=== PATIENT | female | born 1995 | race American Indian/Alaskan Native ===

== ENCOUNTER 2017-02-16 08:56 | Emergency (ER) | payer MEDICAID ==
[2017-02-16 10:35] LABS: Basophils % (Auto) 0.3 % (0.0-1.8); Eosinophils % (Auto) 2.4 % (0.0-4.3); Hematocrit 40.9 % (30.3-42.9); Hemoglobin 13.7 gm/dl (10.1-14.3); Mean Corpuscular HGB Conc 34 % (30-34); Mean Corpuscular Hemoglobin 31 pg (28-32); Mean Corpuscular Volume 93 fl (79-97); Platelet Count 388 K/mm3 (140-440); Red Blood Count 4.42 M/mm3 (3.65-5.03); Red Cell Distribution Width 12.9 % (13.2-15.2); White Blood Count 10.1 K/mm3 (4.5-11.0)
[2017-02-16 10:56] LABS: Bilirubin,Urine NEG (Negative); Blood,Urine SM (Negative); Ketones,Urine NEG (Negative); Leukocyte Esterase,Urine SM (Negative); Mucus,Urine 3+ /HPF; Nitrite,Urine NEG (Negative)
[2017-02-16 11:02] LABS: Anion Gap 20 mmol/L; BUN/Creatinine Ratio 8.75; Blood Urea Nitrogen 7 mg/dL (7-17); Calcium 9.2 mg/dL (8.4-10.2); Carbon Dioxide 22 mmol/L (22-30); Chloride 104.3 mmol/L (98-107); Glucose 95 mg/dL (65-100); Sodium 142 mmol/L (137-145)
[2017-02-16] MEDS ORDERED: DUONEB *Not for PRN Use IH ONE (14:18)
[2017-02-16] MEDS ORDERED: DELTASONE PO ONE (14:18)
--- NOTE | 2017-02-16 15:48 | XRay Report ---
FINAL REPORT EXAM: XR CHEST ROUTINE 2V HISTORY: worsenign cough TECHNIQUE: 2 views of the chest PRIORS: None FINDINGS: Normal heart size. No pleural effusion or pneumothorax. Lungs are clear. No vascular congestion. IMPRESSION: 1. No acute finding.
--- NOTE | 2017-02-16 16:05 | Emergency Department Report ---
Entered by BABAK BARGER, acting as scribe for SAMANTHA DUMONT PA. - General Chief Complaint: Upper Respiratory Infection Stated Complaint: FEVER Time Seen by Provider: 02/16/17 14:10 Source: patient Mode of arrival: Ambulatory Limitations: No Limitations - History of Present Illness Initial Comments: 21 y/o female with PMHx asthma and eczema, presents to the ED c/o sore throat x 1 day. Associated symptoms include fever, chills, ear ache, cough, nausea, vomiting and left wrist pain but she denies headache, SOB and chest pain. Patient states she is on control shot (Depo) and not breast feeding. No alleviating or aggravating factors. Uses tobacco products. NKDA. LMP: 01/26/17. Complaint: sore throat Onset/Timin -: days(s) Consistency: constant Improves With: nothing Worsens With: nothing Associated Symptoms: fever, chills, cough, nausea, vomiting, other (ear ache, left wrist pain). denies: headache, chest pain, shortness of breath Treatments Prior to Arrival: none - Related Data Previous Rx's Medication Instructions Recorded Last Taken Type ALBUTEROL Inhaler [ProAir HFA 2 puff IH QID PRN #1 inhalation 02/16/17 Unknown Rx Inhaler] Azithromycin [Zithromax Z-GURJIT] 250 mg PO QDAY #6 tablet 02/16/17 Unknown Rx Ibuprofen [Motrin] 800 mg PO Q8HR PRN #15 tablet 02/16/17 Unknown Rx predniSONE [Deltasone] 40 mg PO QDAY #10 tab 02/16/17 Unknown Rx Allergies Allergy/AdvReac Type Severity Reaction Status Date / Time No Known Allergies Allergy Unverified 02/16/17 09:42 ED Review of Systems Comment: All other systems reviewed and negative Constitutional: chills, fever ENT: ear pain, throat pain Respiratory: cough. denies: shortness of breath Cardiovascular: denies: chest pain Gastrointestinal: nausea, vomiting Musculoskeletal: other (left wrist pain) Neurological: denies: headache ED Past Medical Hx - Past Medical History Hx Asthma: Yes Additional medical history: eczema - Social History Smoking Status: Current Every Day Smoker - Medications Home Medications: Home Medications Medication Instructions Recorded Confirmed Last Taken Type ALBUTEROL Inhaler [ProAir HFA 2 puff IH QID PRN #1 inhalation 02/16/17 Unknown Rx Inhaler] Azithromycin [Zithromax Z-GURJIT] 250 mg PO QDAY #6 tablet 02/16/17 Unknown Rx Ibuprofen [Motrin] 800 mg PO Q8HR PRN #15 tablet 02/16/17 Unknown Rx predniSONE [Deltasone] 40 mg PO QDAY #10 tab 02/16/17 Unknown Rx ED Physical Exam - General Limitations: No Limitations General appearance: alert, in no apparent distress - Head Head exam: Present: atraumatic, normocephalic, normal inspection - Eye Eye exam: Present: normal appearance, PERRL, EOMI. Absent: scleral icterus, conjunctival injection, nystagmus, periorbital swelling, periorbital tenderness Pupils: Present: normal accommodation - ENT ENT exam: Present: mucous membranes moist, TM's normal bilaterally, normal external ear exam - Neck Neck exam: Present: normal inspection, full ROM. Absent: tenderness, meningismus, lymphadenopathy, thyromegaly - Respiratory Respiratory exam: Present: normal lung sounds bilaterally. Absent: respiratory distress, wheezes, rales, rhonchi, stridor, chest wall tenderness, accessory muscle use, decreased breath sounds, prolonged expiratory - Cardiovascular Cardiovascular Exam: Present: regular rate, normal rhythm. Absent: bradycardia , tachycardia, irregular rhythm, normal heart sounds, systolic murmur, diastolic murmur, rubs, gallop - GI/Abdominal GI/Abdominal exam: Present: soft, normal bowel sounds. Absent: distended, tenderness, guarding, rebound, rigid, diminished bowel sounds - Extremities Exam Extremities exam: Present: normal inspection, full ROM, normal capillary refill. Absent: tenderness, pedal edema, joint swelling, calf tenderness - Back Exam Back exam: Present: normal inspection, full ROM. Absent: tenderness, CVA tenderness (R), CVA tenderness (L), muscle spasm, paraspinal tenderness, vertebral tenderness, rash noted - Neurological Exam Neurological exam: Present: alert, oriented X3 - Psychiatric Psychiatric exam: Present: normal affect, normal mood - Skin Skin exam: Present: warm, dry, intact, normal color. Absent: rash ED Course Vital Signs 02/16/17 02/16/17 02/16/17 09:32 14:55 14:56 Temperature 98.6 F Pulse Rate 89 Pulse Rate [ 89 89 Anterior Bilateral Throughout] Respiratory 16 Rate Respiratory 18 18 Rate [Anterior Bilateral Throughout] Blood Pressure 124/84 Blood Pressure 124/84 [Left] O2 Sat by Pulse 100 Oximetry ED Medical Decision Making - Lab Data Result diagrams: 02/16/17 10:21 02/16/17 10:21 - Medical Decision Making A/P: Upper respiratory tract infection 1-prednisone when necessary, albuterol inhaler, Motrin when necessary 2-azithromycin Z-Gurjit 3-follow up with primary care ED Disposition Clinical Impression: Upper respiratory infection Qualifiers: URI type: unspecified viral URI Qualified Code(s): J06.9 - Acute upper respiratory infection, unspecified Reactive airway disease Qualifiers: Asthma severity: mild intermittent Asthma complication type: uncomplicated Qualified Code(s): J45.20 - Mild intermittent asthma, uncomplicated Disposition: TO HOME OR SELFCARE Is pt being admited?: No Does the pt Need Aspirin: No Condition: Stable Instructions: Acute Bronchitis (ED), Acute Cough (ED), Reactive Airways Disease (ED) Prescriptions: ALBUTEROL Inhaler [ProAir HFA Inhaler] 2 puff IH QID PRN #1 inhalation PRN Reason: Shortness Of Breath Azithromycin [Zithromax Z-GURJIT] 250 mg PO QDAY #6 tablet Ibuprofen [Motrin] 800 mg PO Q8HR PRN #15 tablet PRN Reason: Pain predniSONE [Deltasone] 40 mg PO QDAY #10 tab Referrals: [facility] [Provider Group] - 3-5 Days Forms: Accompanied Note, Work/School Release Form(ED) This documentation as recorded by the CHARBEL velez ELIZABETH,accurately reflects the service I personally performed and the decisions made by JULIA green RICHARD J, PA.
[2017-02-16 17:09] VITALS: BP 120/82
== END 2017-02-16 17:08 | disposition home or self-care (01) ==
LOC: ED 08:56
DX: J06.9 Acute upper respiratory infection, unspecified (principal); J45.909 Unspecified asthma, uncomplicated; F17.210 Nicotine dependence, cigarettes, uncomplicated
CPT/HCPCS: 36415; 71020; 80048; 81001; 85025; 87116; 87430; 94640; 99284; J7512

== ENCOUNTER 2019-04-08 10:33 | Emergency (ER) | payer SELFPAY ==
[2019-04-08 10:57] VITALS: BP 119/73
--- NOTE | 2019-04-08 11:55 | Emergency Department Report ---
Chief Complaint: Recheck/Abnormal Lab/Rx Stated Complaint: STD Time Seen by Provider: 04/08/19 11:22 - HPI History of Present Illness: This is a 24-year-old female who presents to the emergency room for a STD check. Patient states she is ready to proceed further with her partner and requesting full testing. She denies urinary frequency, urgency, dysuria, vaginal discharge, hematuria, pelvic pain, and low back pain. - Exam Vital Signs: Vital Signs 04/08/19 10:54 Temperature 99.1 F Pulse Rate 117 H Respiratory 16 Rate Blood Pressure 119/73 [Right] MSE screening note: Focused history and physical exam performed. Due to findings the following was ordered: ED Medical Decision Making - Medical Decision Making This is a 24-year-old -[place] female who presents for STD screening. Patient was examined by me. Stable and in no acute distress. No labs ordered. Patient denies symptoms. Discharged home in stable condition. Discussed prevention options. F/U with PCP, gynecology, or Health Department. ED Disposition for MSE Clinical Impression: Feared complaint without diagnosis Disposition: DC-01 TO HOME OR SELFCARE Is pt being admited?: No Does the pt Need Aspirin: No Condition: Stable Instructions: Safe Sex (ED), Sexually Transmitted Diseases (ED) Additional Instructions: Follow up with the moth exterminator, primary care doctor, or urgent care for full STD screen and that is discussed. I have provided a list and referrals list below for you to follow-up with. Referrals: [facility] [Outside] - 3-5 Days [facility] [Outside] - 3-5 Days [facility] [Outside] - 3-5 Days [facility] [Other] - 3-5 Days Forms: Work/School Release Form(ED) Time of Disposition: 11:57
== END 2019-04-08 12:10 | disposition home or self-care (01) ==
LOC: ED 10:33
DX: Z71.1 Person with feared health complaint in whom no diagnosis is made (principal)
CPT/HCPCS: 99281

== ENCOUNTER 2020-06-01 20:25 | Inpatient (IN) | payer MEDICAID, OTHER, SELFPAY ==
[2020-06-01] MEDS ORDERED: ALBUTEROL 2.5 MG/3 ML NEBU IH ONE (22:54)
[2020-06-01] MEDS ORDERED: IPRATROPIUM/ALBUTEROL SULFATE 3 ML AMPUL.NEB IH ONE (22:54)
[2020-06-01] MEDS ORDERED: MAGNESIUM SULFATE 2 GM/50 ML BAG IV ONE (23:19)
[2020-06-01] MEDS ORDERED: AZITHROMYCIN 500 MG in SODIUM CHLORIDE 0.9% 250ML 250 ML IV ONE (23:21)
[2020-06-01] MEDS ORDERED: cefTRIAXone/NS 2 GM/100 ML 2 GM/100 ML BAG IV ONE (23:21)
[2020-06-01] MEDS ORDERED: SODIUM CHLORIDE 0.9% 1000 ML 1,000 ML IV ONE (23:21)
--- NOTE | 2020-06-01 23:21 | Emergency Department Report ---
ED Shortness of Breath HPI - General Chief Complaint: Adult Asthma Stated Complaint: [place] Time Seen by Provider: 06/01/20 23:15 Source: patient Mode of arrival: Ambulatory Limitations: No Limitations - History of Present Illness Initial Comments: Patient is a 25-year-old female that presents emergency room for shortness of breath and difficulty breathing. Patient has history of asthma. Patient states her symptoms started 2 days ago. Patient was brought in by EMS. Patient states that they gave her steroids and albuterol. Patient states she still having difficulty breathing and wheezing and coughing. Patient dates she had a fever yesterday. Patient states she cannot take a deep breath or catch her breath. Patient states that it hurts when she takes a deep breath. Patient states her symptoms are severe. Patient dates her shortness of breath better with rest and worse with exertion. Patient denies recent travel. Patient denies recent international travel. Patient denies exposure to the novel coronavirus. Patient denies sick contacts. Patient denies fever and chills. Patient denies cough. Patient denies diarrhea. Patient denies coming in contact with anybody with symptoms of the novel coronavirus. MD Complaint: shortness of breath, cough -: Sudden Severity: severe Consistency: constant Improves With: rest, bronchodilators Worsens With: exertion Known History Of: asthma Associated Symptoms: pain with inspiration, fever, cough, sputum production Treatments Prior to Arrival: bronchodilator, other - Related Data Home Oxygen Therapy: No Previous Rx's Medication Instructions Recorded Last Taken Type Albuterol Mdi (or & Nicu Only) 2 puff IH QID PRN #1 inhalation 02/16/17 Unknown Rx [ProAir HFA Inhaler] Azithromycin [Zithromax Z-NALINI] 250 mg PO QDAY #6 tablet 02/16/17 Unknown Rx Ibuprofen [Motrin] 800 mg PO Q8HR PRN #15 tablet 02/16/17 Unknown Rx predniSONE [Deltasone] 40 mg PO QDAY #10 tab 02/16/17 Unknown Rx Allergies Allergy/AdvReac Type Severity Reaction Status Date / Time No Known Allergies Allergy Verified 06/01/20 23:17 ED Review of Systems ROS: Stated complaint: [place] Other details as noted in HPI Constitutional: denies: chills, fever Eyes: denies: eye pain, eye discharge, vision change ENT: denies: ear pain, throat pain Respiratory: cough, shortness of breath, SOB with exertion, SOB at rest, wheezing Cardiovascular: denies: chest pain, palpitations Endocrine: no symptoms reported Gastrointestinal: denies: abdominal pain, nausea, diarrhea Genitourinary: denies: urgency, dysuria, discharge Musculoskeletal: denies: back pain, joint swelling, arthralgia Skin: denies: rash, lesions Neurological: denies: headache, weakness, paresthesias Psychiatric: denies: anxiety, depression Hematological/Lymphatic: denies: easy bleeding, easy bruising ED Past Medical Hx - Past Medical History Previous Medical History?: Yes Hx Asthma: Yes Additional medical history: eczema - Surgical History Past Surgical History?: No - Social History Smoking Status: Never Smoker Substance Use Type: None - Medications Home Medications: Home Medications Medication Instructions Recorded Confirmed Last Taken Type Albuterol Mdi (or & Nicu Only) 2 puff IH QID PRN #1 inhalation 02/16/17 Unknown Rx [ProAir HFA Inhaler] Azithromycin [Zithromax Z-NALINI] 250 mg PO QDAY #6 tablet 02/16/17 Unknown Rx Ibuprofen [Motrin] 800 mg PO Q8HR PRN #15 tablet 02/16/17 Unknown Rx predniSONE [Deltasone] 40 mg PO QDAY #10 tab 02/16/17 Unknown Rx ED Physical Exam - General Limitations: No Limitations General appearance: alert, in distress - Head Head exam: Present: atraumatic, normocephalic - Eye Eye exam: Present: normal appearance, PERRL Pupils: Present: normal accommodation - ENT ENT exam: Present: mucous membranes dry - Neck Neck exam: Present: normal inspection - Respiratory Respiratory exam: Present: respiratory distress, wheezes, chest wall tenderness, accessory muscle use, decreased breath sounds - Cardiovascular Cardiovascular Exam: Present: regular rate, normal rhythm. Absent: systolic murmur, diastolic murmur, rubs, gallop - GI/Abdominal GI/Abdominal exam: Present: soft, normal bowel sounds - Extremities Exam Extremities exam: Present: normal inspection - Back Exam Back exam: Present: normal inspection - Neurological Exam Neurological exam: Present: alert, oriented X3 - Psychiatric Psychiatric exam: Present: normal affect, normal mood - Skin Skin exam: Present: warm, dry, intact, normal color. Absent: rash ED Course Vital Signs 06/01/20 06/01/20 06/02/20 21:42 23:46 03:23 Temperature 99.1 F Pulse Rate 120 H 126 H 129 H Pulse Rate [ Bilateral] Respiratory 17 20 32 H Rate Respiratory Rate [Bilateral ] Blood Pressure 106/69 Blood Pressure 117/84 [Left] O2 Sat by Pulse 100 97 99 Oximetry 06/02/20 03:28 Temperature Pulse Rate Pulse Rate [ 133 H Bilateral] Respiratory Rate Respiratory 32 H Rate [Bilateral ] Blood Pressure Blood Pressure [Left] O2 Sat by Pulse Oximetry - Reevaluation(s) Reevaluation #1: Patient still wheezing. Patient's work to breathe has improved. Patient is still short of breath. 06/02/20 00:01 Reevaluation #2: I discussed all results with patient. I discussed plan of care with patient. Patient agrees with plan of care and admission. Patient to be admitted to the hospitalist service. 06/02/20 00:36 Reevaluation #3: Patient having increased work to breathe. Patient given a breathing treatment and still wheezing and having increased work of breathing. Patient placed on BiPAP. Patient's work to breathe improved. Patient complained of anxiety and patient will be given Ativan. Hospitalist made aware of updates. 06/02/20 03:18 - Consultations Consultation #1: Hospitalist consulted for admission. Hospitalist to admit patient. 06/02/20 00:36 ED Medical Decision Making - Lab Data Result diagrams: 06/01/20 23:25 06/02/20 01:46 - Radiology Data Radiology results: report reviewed, image reviewed interpreted by me: Chest x-ray: No pneumonia, no pneumothorax, no foreign body, no osseous findings, no acute findings - Medical Decision Making Patient is a 25-year-old female that presents emergency room with complaints of shortness of breath. Patient found to be in status asthmaticus. Patient received 125 mg of Solu-Medrol from EMS prior to arrival. Patient was also given albuterol 10 mg by EMS. On initial evaluation, patient was found to have severe wheezing and increased work to breathe and retractions. Patient was given another albuterol and Atrovent nebulizer and magnesium. Patient's work to breathe improved with therapy. Patient continued to wheeze after albuterol and mag. Patient chest x-ray was negative. Patient's labs were essentially unremarkable except for acidosis and lactic acidosis and elevated WBC. Patient admitted to the hospitalist service for further evaluation treatment. Patient had a Covid panel ordered just prior to admission. Consult for ID placed. After the patient was admitted, the patient became acutely short of breath and having difficulty breathing. Patient was given breathing treatment however her work of breathing improved and the patient was then placed on BiPAP. Patient's work of breathing and symptoms improved with BiPAP. - Differential Diagnosis Covid, pneumonia, status asthmaticus, shortness of breath, Critical Care Time: Yes Critical care time in (mins) excluding proc time.: 35 Critical care attestation.: If time is entered above; I have spent that time in minutes in the direct care of this critically ill patient, excluding procedure time. Critical Care Time: 35 minutes ED Disposition Clinical Impression: SOB (shortness of breath), Lactic acid acidosis, Person under investigation for COVID-19 Status asthmaticus Qualifiers: Asthma severity: severe Asthma persistence: persistent Qualified Code(s): J45.52 - Severe persistent asthma with status asthmaticus Fever Qualifiers: Fever type: unspecified Qualified Code(s): R50.9 - Fever, unspecified Respiratory failure Qualifiers: Chronicity: acute Respiratory failure complication: hypoxia Qualified Code(s): J96.01 - Acute respiratory failure with hypoxia Disposition: 09 OP ADMIT IP TO THIS HOSP Is pt being admited?: Yes Does the pt Need Aspirin: No Condition: Critical Time of Disposition: 00:38
[2020-06-01 23:56] LABS: Basophils % (Auto) 0.1 % (0.0-1.8); Hematocrit 40.4 % (30.3-42.9); Hemoglobin 13.8 gm/dl (10.1-14.3); Lymphocytes # (Auto) 0.3 K/mm3 (1.2-5.4); Lymphocytes % (Auto) 2.2 % (13.4-35.0); Mean Corpuscular HGB Conc 34 % (30-34); Mean Corpuscular Volume 98 fl (79-97); Monocytes # (Auto) 0.1 K/mm3 (0.0-0.8); Monocytes % (Auto) 0.8 % (0.0-7.3); Platelet Count 316 K/mm3 (140-440); Red Blood Count 4.14 M/mm3 (3.65-5.03); Red Cell Distribution Width 12.8 % (13.2-15.2)
[2020-06-02 00:11] LABS: Alanine Aminotransferase 14 units/L (7-56); Albumin 4.4 g/dL (3.9-5); BUN/Creatinine Ratio 13; Blood Urea Nitrogen 10 mg/dL (7-17); Calcium 9.3 mg/dL (8.4-10.2); Hemolysis Index 7
--- NOTE | 2020-06-02 00:23 | XRay Report ---
CHEST 1 VIEW INDICATION: Dyspnea. COMPARISON: None. FINDINGS: Support devices: None. Heart: Normal. Lungs/Pleura: No acute pulmonary or pleural findings. IMPRESSION: 1. No acute findings. Signer Name: Derek Gabriel MD Signed: 06/02/2020 12:19 AM Workstation Name: [id number]
[2020-06-02] MEDS ORDERED: MORPHINE 2 MG/1 ML INJ IV PRN (01:09)
[2020-06-02] MEDS ORDERED: ONDANSETRON 4 MG/2 ML INJ IV PRN (01:09)
[2020-06-02] MEDS ORDERED: MAGNESIUM HYDROXIDE (MOM) ORAL LIQD UDC PO PRN (01:09)
[2020-06-02] MEDS ORDERED: IPRATROPIUM/ALBUTEROL SULFATE 3 ML AMPUL.NEB IH ONE ×3 (01:23→21:12)
--- NOTE | 2020-06-02 01:23 | History and Physical Report ---
History of Present Illness Date of examination: 06/02/20 Date of admission: 06/02/20 00:59 Chief complaint: Shortness of Breath History of present illness: 25-year-old -Italian female with known history of asthma presenting to the emergency room today complaining of shortness of breath and difficulty breathing which started about 2 days ago. In route to the hospital patient was given steroids and albuterol by EMS. Shortness of breath improves on resting and worse on exertion. She had some low-grade fever yesterday which has since subsided. She denies any nausea vomiting, no diarrhea, no hematuria or dysuria, no chest pain, no headache or dizziness, no history of recent travel. No history of exposure to anyone with COVID-19. 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 Upon arrival in the emergency room patient was given more doses of nebulizer treatments with some improvement. Work-up in the emergency room today reveals elevated lactic acid, leukocytosis. Chest x-ray was unremarkable. Patient is being admitted for asthma exacerbation. We will also rule out COVID-19. Past History Past Medical History: other (Asthma, Ecxema) Past Surgical History: No surgical history Social history: no significant social history Family history: no significant family history Medications and Allergies Allergies Allergy/AdvReac Type Severity Reaction Status Date / Time No Known Allergies Allergy Verified 06/01/20 23:17 Home Medications Medication Instructions Recorded Confirmed Last Taken Type Albuterol Mdi (or & Nicu Only) 2 puff IH QID PRN #1 inhalation 02/16/17 Unknown Rx [ProAir HFA Inhaler] Azithromycin [Zithromax Z-NALINI] 250 mg PO QDAY #6 tablet 02/16/17 Unknown Rx Ibuprofen [Motrin] 800 mg PO Q8HR PRN #15 tablet 02/16/17 Unknown Rx predniSONE [Deltasone] 40 mg PO QDAY #10 tab 02/16/17 Unknown Rx Active Meds: Active Medications Acetaminophen (Tylenol) 650 mg PO Q4H PRN PRN Reason: Pain MILD(1-3)/Fever >100.5/RUBIO Albuterol/Ipratropium (Duoneb *Not For Prn Use*) 1 ampul IH Q6HRT HELIO Sodium Chloride (Nacl 0.9% 1000 Ml) 1,000 mls @ 75 mls/hr IV DIRECT HELIO Magnesium Hydroxide (Milk Of Magnesia) 30 ml PO Q4H PRN PRN Reason: Constipation Methylprednisolone Sodium Succinate (Solu-Medrol) 40 mg IV Q8HR HELIO Morphine Sulfate (Morphine) 2 mg IV Q4H PRN PRN Reason: Pain, Moderate (4-6) Ondansetron HCl (Zofran) 4 mg IV Q8H PRN PRN Reason: Nausea And Vomiting Sodium Chloride (Sodium Chloride Flush Syringe 10 Ml) 10 ml IV BID HELIO Sodium Chloride (Sodium Chloride Flush Syringe 10 Ml) 10 ml IV PRN PRN PRN Reason: LINE FLUSH Review of Systems Constitutional: fever, no chills Ears, nose, mouth and throat: no nasal congestion, no sore throat Cardiovascular: no chest pain, no palpitations Respiratory: cough, shortness of breath, wheezing Gastrointestinal: nausea, vomiting, no abdominal pain, no diarrhea Genitourinary Female: no flank pain, no dysuria, no hematuria, no nocturia Musculoskeletal: neck pain, low back pain Integumentary: no rash, no pruritis Neurological: no headaches, no confusion Psychiatric: no anxiety, no depression Exam - Constitutional Vitals: Temp Pulse Resp BP Pulse Ox 99.1 F 126 H 20 117/84 97 06/01/20 21:42 06/01/20 23:46 06/01/20 23:46 06/01/20 23:46 06/01/20 23:46 General appearance: Present: no acute distress, well-nourished - EENT Eyes: Present: PERRL, EOM intact. Absent: scleral icterus ENT: hearing intact, clear oral mucosa, dentition normal - Neck Neck: Present: supple, normal ROM - Respiratory Respiratory effort: labored Respiratory: bilateral: wheezing - Cardiovascular Rhythm: regular Heart Sounds: Present: S1 & S2. Absent: gallop, systolic murmur, diastolic murmur, rub - Extremities Extremities: no ischemia, pulses intact, pulses symmetrical, No edema, Full ROM Peripheral Pulses: within normal limits - Abdominal General gastrointestinal: Present: soft, non-tender, non-distended, normal bowel sounds. Absent: mass - Integumentary Integumentary: Present: clear, warm, dry. Absent: rash - Musculoskeletal Musculoskeletal: strength equal bilaterally - Psychiatric Psychiatric: appropriate mood/affect, intact judgment & insight, memory intact, cooperative - Neurologic Neurologic: CNII-XII intact, focal deficits, moves all extremities Results - Labs CBC & Chem 7: 06/01/20 23:25 06/02/20 01:46 Labs: Abnormal lab results 06/01/20 06/01/20 06/01/20 Range/Units 23:25 23:25 23:25 WBC 15.1 H (4.5-11.0) K/mm3 MCV 98 H (79-97) fl MCH 33 H (28-32) pg RDW 12.8 L (13.2-15.2) % Lymph % (Auto) 2.2 L (13.4-35.0) % Lymph # (Auto) 0.3 L (1.2-5.4) K/mm3 Seg Neutrophils # 14.6 H (1.8-7.7) K/mm3 Potassium 3.4 L (3.6-5.0) mmol/L Carbon Dioxide 18 L (22-30) mmol/L Glucose 161 H (65-100) mg/dL Lactic Acid 5.30 H* (0.7-2.0) mmol/L Assessment and Plan - Patient Problems (1) Status asthmaticus Current Visit: Yes Status: Acute Qualifiers: Asthma severity: severe Asthma persistence: persistent Qualified Code(s): J45.52 - Severe persistent asthma with status asthmaticus Plan to address problem: We will continue patient on nebulizing treatments and IV steroid. We will keep O2 saturation greater or equal to 94%. Patient also placed on empiric IV antibiotics for possible underlying bronchitis. Will also consult pulmonology for evaluation. (2) Person under investigation for COVID-19 Current Visit: Yes Status: Acute Plan to address problem: We will place consult to infectious disease for evaluation and recommendation. Meanwhile we await COVID-19 testing. (3) Lactic acid acidosis Current Visit: Yes Status: Acute Plan to address problem: Possibly secondary to the underlying asthma exacerbation. Will monitor chemistry. (4) DVT prophylaxis Current Visit: Yes Status: Acute Plan to address problem: Patient placed on subcutaneous Lovenox. (5) Full code status Current Visit: Yes Status: Acute
[2020-06-02] MEDS ORDERED: IPRATROPIUM/ALBUTEROL SULFATE 3 ML AMPUL.NEB IH SCH (02:00)
[2020-06-02] MEDS ORDERED: ALBUTEROL 2.5 MG/3 ML NEBU IH ONE ×4 (03:04→03:10)
[2020-06-02 03:06] LABS: C-Reactive Protein 0.3 mg/dL (0.00-1.30)
[2020-06-02] MEDS ORDERED: IPRATROPIUM 0.02% NEBU 2.5 ML IH ONE ×2 (03:08→03:09)
[2020-06-02] MEDS ORDERED: LORazepam 2 MG/ML VIAL ONE (03:23)
[2020-06-02] MEDS ORDERED: LORazepam 2 MG/ML VIAL IV ONE (03:42)
[2020-06-02] MEDS ORDERED: methylPREDNISolone Sod Succinate 40 MG/1 ML INJ IV SCH ×2 (06:00→13:00)
[2020-06-02] MEDS ORDERED: methylPREDNISolone Sod Succinate 40 MG/1 ML INJ ONE ×2 (06:40→14:30)
[2020-06-02] MEDS ORDERED: IPRATROPIUM/ALBUTEROL SULFATE 3 ML AMPUL.NEB IH STA (07:08)
[2020-06-02] MEDS ORDERED: SODIUM CHLORIDE 0.9% 1000 ML 1,000 ML IV ONE (07:27)
--- NOTE | 2020-06-02 07:35 | Event Note ---
Date: 06/02/20 This is a 25-year-old female already admitted by Dr. Colon and status asthmaticus. I see her status is observation to a [facility] bed. She was brought to my attention by the respiratory therapist who had identified respiratory distress. The respiratory therapist told me the patient is uncooperative with BiPAP and high flow oxygen therapy. Nursing informs me that she had to be given Ativan during the night. They state that she has been generally agitated and difficult to manage. Upon my encounter, the patient is clearly in respiratory distress. She has bilateral wheezing. He is leaning forward using accessory muscles. I reviewed her chest x-ray which although perhaps a bit streaky was read as negative by the radiologist. I reviewed her record when indicates severe but improving lactic acidosis. She is apparently been treated with cephalosporins and a azithromycin. I did not see a blood gas ordered. Diagnostic impression Respiratory distress Severe persistent status asthmaticus Plan The patient accepted additional nebulized treatment. I have informed Dr. Colon of her critical status. She may well require intubation. He has switched her status to IMCU. He has ordered Ativan. I will reassess her. I requested her to be placed in a larger critical care room in the emergency department. Patient now sedated. Will require PPV either NIPPV or intubation. Respiratory informed. Respiratory and nursing were inclined to continue BiPAP. I gave the patient a trial. It was unsuccessful. Intubation was requested and appropriate. Procedure note Patient was intubated using direct laryngoscopy. Single attempt with a MAC 4 blade. 7.5 Czech endotracheal tube secured at 23 cm at the teeth. End-tidal CO2 bright yellow color change. Bilateral breath sounds. Diagnosis respiratory failure Plan Restraint and sedation. Hospitalist informed to change status to ICU. Check chest x-ray for tube placement. Further care per hospitalist staff. Critical care time 60 minutes in excess of procedure Procedure Endotracheal intubation
[2020-06-02] MEDS ORDERED: KETAMINE 500 MG/5 ML VIAL MDV IV ONE (07:58)
[2020-06-02] MEDS ORDERED: SODIUM CHLORIDE 0.9% 1000 ML 1,000 ML ONE (08:16)
[2020-06-02] MEDS ORDERED: ETOMIDATE 20 MG/10 ML INJ IV ONE (09:00)
[2020-06-02] MEDS ORDERED: ROCURONIUM 50 MG/5 ML INJ IV ONE ×2 (09:01→16:03)
[2020-06-02 09:25] LABS: ABG Base Excess -4.8 mmol/L (-2.0-3.0); ABG HCO3 22.5 mmol/L (20.0-26.0); ABG Methemoglobin 0.7 % (0.0-1.5); ABG Oxygen Saturation 96.6 % (95.0-99.0); ABG PCO2 50.3 mm Hg; ABG PH 7.268 pH Units (7.350-7.450)
[2020-06-02] MEDS ORDERED: MINERAL OIL/PETROLATUM, WHITE OPHTH OINT 3.5 GM OU PRN (09:28)
[2020-06-02] MEDS ORDERED: LORazepam 2 MG/ML VIAL IV PRN (09:28)
[2020-06-02] MEDS ORDERED: LIP THERAPY VASELINE TP PRN (09:28)
[2020-06-02] MEDS ORDERED: LORazepam 100 MG in SODIUM CHLORIDE 0.9% 50 ML, EMPTY BAG 0 ML IV SCH (10:00)
--- NOTE | 2020-06-02 10:22 | XRay Report ---
XR abdomen 1V ap INDICATION / CLINICAL INFORMATION: tube placement. COMPARISON: None available. FINDINGS/IMPRESSION: There is gastric placement of nasogastric tube. A few mildly dilated small bowel loops are present in the left lower abdomen, may reflect ileus or small bowel obstruction. Signer Name: Jared Abdi MD Signed: 06/02/2020 10:17 AM Workstation Name: [id number]
--- NOTE | 2020-06-02 10:23 | XRay Report ---
XR chest 1V ap INDICATION / CLINICAL INFORMATION: ETT placement. COMPARISON: 06/02/2020 FINDINGS: SUPPORT DEVICES: Endotracheal tube terminates in the midtrachea. Enteric catheter is detailed on conc urrent abdomen radiograph. HEART /PULMONARY VASCULATURE: Prominent heart size without significant pulmonary vasculature congesti on. LUNGS / PLEURA: Mild increased patchy perihilar airspace opacities. No pleural effusion No pneumothor ax. ADDITIONAL FINDINGS: No significant additional findings. IMPRESSION: Satisfactory position of endotracheal tube with increased patchy perihilar airspace opacities, which may reflect developing edema or infiltrate. Signer Name: Jared Abdi MD Signed: 06/02/2020 10:19 AM Workstation Name: [id number]
[2020-06-02 11:12] LABS: ABG Base Excess -6.6 mmol/L (-2.0-3.0); ABG Methemoglobin 0.6 % (0.0-1.5); ABG Oxygen Saturation 97.8 % (95.0-99.0); ABG PCO2 58.7 mm Hg; ABG PO2 122.5 mm Hg (80.0-90.0)
--- NOTE | 2020-06-02 11:17 | Consultation ---
History of Present Illness Consult date: 06/02/20 Requesting physician: BELLA KAMINSKI Reason for consult: asthma (Status), other (Acute Hypoxemic Respiratory Failure on MVS) History of present illness: PULMONARY/CCM CONSULT NOTE (Full dictation # [id number]) Please see dictated notes for full details Past History Past Medical History: other (Asthma, Ecxema) Past Surgical History: No surgical history Social history: no significant social history Family history: no significant family history Medications and Allergies Allergies Allergy/AdvReac Type Severity Reaction Status Date / Time No Known Allergies Allergy Verified 06/01/20 23:17 Home Medications Medication Instructions Recorded Confirmed Last Taken Type Albuterol Mdi (or & Nicu Only) 2 puff IH QID PRN #1 inhalation 02/16/17 Unknown Rx [ProAir HFA Inhaler] Azithromycin [Zithromax Z-NALINI] 250 mg PO QDAY #6 tablet 02/16/17 Unknown Rx Ibuprofen [Motrin] 800 mg PO Q8HR PRN #15 tablet 02/16/17 Unknown Rx predniSONE [Deltasone] 40 mg PO QDAY #10 tab 02/16/17 Unknown Rx Active Meds: Active Medications Acetaminophen (Tylenol) 650 mg PO Q4H PRN PRN Reason: Pain MILD(1-3)/Fever >100.5/RUBIO Enoxaparin Sodium (Enoxaparin) 40 mg SUB-Q QDAY@2200 HELIO; Protocol Hydrophilic Ointment (Vaseline Lip Therapy) 1 applic TP Q2HR PRN PRN Reason: Dry Lips Sodium Chloride (Nacl 0.9% 1000 Ml) 1,000 mls @ 75 mls/hr IV DIRECT HELIO Ceftriaxone Sodium (Rocephin/Ns 2 Gm/100 Ml) 2 gm in 100 mls @ 200 mls/hr IV Q24H HELIO; Protocol Azithromycin 500 mg/ Sodium (Chloride) 250 mls @ 250 mls/hr IV Q24H HELIO; Protocol Stop: 06/05/20 22:59 Lorazepam 100 mg/ Sodium Chloride/ Miscellaneous Information 100 mls @ 1 mls/hr IV TITR HELIO; Protocol Propofol (Diprivan 10 Mg/Ml) 1,000 mg in 100 mls @ 2.517 mls/hr IV TITR HELIO; Protocol Last Titration: 06/02/20 10:44 Dose: 20 mcg/kg/min, 10.07 mls/hr Documented by: Lorazepam (Ativan) 2 mg IV Q10MIN PRN PRN Reason: Agitation Magnesium Hydroxide (Milk Of Magnesia) 30 ml PO Q4H PRN PRN Reason: Constipation Methylprednisolone Sodium Succinate (Solu-Medrol) 40 mg IV Q8HR [facility] Last Admin: 06/02/20 07:04 Dose: 40 mg Documented by: Morphine Sulfate (Morphine) 2 mg IV Q4H PRN PRN Reason: Pain, Moderate (4-6) Multi-Ingred Cream/Lotion/Oil/Oint (Artificial Tears Ophth Oint) 1 applic OU Q4HR PRN PRN Reason: Dry Eye(s) Ondansetron HCl (Zofran) 4 mg IV Q8H PRN PRN Reason: Nausea And Vomiting Sodium Chloride (Sodium Chloride Flush Syringe 10 Ml) 10 ml IV BID [facility] Last Admin: 06/02/20 10:23 Dose: 10 ml Documented by: Sodium Chloride (Sodium Chloride Flush Syringe 10 Ml) 10 ml IV PRN PRN PRN Reason: LINE FLUSH Physical Examination Vital signs: Vital Signs Temp Pulse Resp BP Pulse Ox 99.1 F 120 H 17 106/69 100 06/01/20 21:42 06/01/20 21:42 06/01/20 21:42 06/01/20 21:42 06/01/20 21:42 Results - Laboratory Findings CBC and BMP: 06/01/20 23:25 06/02/20 01:46 ABG ABG pCO2 58.7 mm Hg 06/02/20 10:23 ABG pO2 122.5 mm Hg (80.0-90.0) H 06/02/20 10:23 ABG O2 Saturation 97.8 % (95.0-99.0) 06/02/20 10:23 PT/INR, D-dimer D-Dimer 516.58 ng/mlDDU (0-234) H 06/02/20 01:46 Abnormal lab findings: Abnormal Labs 06/01/20 06/01/20 06/01/20 23:25 23:25 23:25 WBC 15.1 H MCV 98 H MCH 33 H RDW 12.8 L Lymph % (Auto) 2.2 L Lymph # (Auto) 0.3 L Seg Neutrophils # 14.6 H D-Dimer ABG pH ABG pO2 ABG Base Excess Oxyhemoglobin Potassium 3.4 L Carbon Dioxide 18 L Glucose 161 H Lactic Acid 5.30 H* Lactate Dehydrogenase 06/02/20 06/02/20 06/02/20 01:46 01:46 01:46 WBC MCV MCH RDW Lymph % (Auto) Lymph # (Auto) Seg Neutrophils # D-Dimer 516.58 H ABG pH ABG pO2 ABG Base Excess Oxyhemoglobin Potassium Carbon Dioxide Glucose 181 H Lactic Acid 5.30 H* Lactate Dehydrogenase 83 L 06/02/20 06/02/20 06/02/20 05:35 08:06 09:00 WBC MCV MCH RDW Lymph % (Auto) Lymph # (Auto) Seg Neutrophils # D-Dimer ABG pH 7.268 L ABG pO2 94.0 H ABG Base Excess -4.8 L Oxyhemoglobin 94.8 L Potassium Carbon Dioxide Glucose Lactic Acid 3.60 H* 2.10 H* Lactate Dehydrogenase 06/02/20 10:23 WBC MCV MCH RDW Lymph % (Auto) Lymph # (Auto) Seg Neutrophils # D-Dimer ABG pH ABG pO2 122.5 H ABG Base Excess -6.6 L Oxyhemoglobin Potassium Carbon Dioxide Glucose Lactic Acid Lactate Dehydrogenase
[2020-06-02 11:28] LABS: ABG PH 7.193 pH Units (7.350-7.450)
--- NOTE | 2020-06-02 12:01 | Progress Note ---
Assessment and Plan Assessment and plan: Status asthmaticus We will continue patient on nebulizing treatments and IV steroid. We will keep O2 saturation greater or equal to 94%. Patient also placed on empiric IV antibiotics for possible underlying bronchitis. Will also consult pulmonology for evaluation. Acute hypoxic respiratory failure. Etiology secondary to above. Patient was intubated but has extubated herself. Await pulmonary evaluation Suspected COVID-[address] consult to infectious disease for evaluation and recommendation. Meanwhile we await COVID-19 testing. Sepsis Present on admission. Etiology may be secondary to COVID-19 pneumonia. Patient meets criteria given the leukocytosis tachycardia and diagnosis of pneumonia. Follow-up Covid testing and monitor closely. DVT prophylaxis Patient placed on subcutaneous Lovenox. History Interval history: Patient reportedly decompensated from a respiratory standpoint and required intubation this morning. However, patient self extubated herself later this morning. Hospitalist Physical - Constitutional Vitals: Temp Pulse Resp BP Pulse Ox 99.1 F 131 H 39 H 115/91 99 06/01/20 21:42 06/02/20 09:33 06/02/20 07:56 06/02/20 09:33 06/02/20 09:33 General appearance: Present: no acute distress, well-nourished - EENT Eyes: Present: PERRL, EOM intact ENT: hearing intact, clear oral mucosa, dentition normal - Neck Neck: Present: supple, normal ROM - Respiratory Respiratory effort: normal Respiratory: bilateral: CTA - Cardiovascular Rhythm: regular Heart Sounds: Present: S1 & S2. Absent: gallop, rub - Extremities Extremities: no ischemia, No edema, Full ROM - Abdominal General gastrointestinal: soft, non-tender, non-distended, normal bowel sounds - Integumentary Integumentary: Present: clear, warm, dry - Neurologic Neurologic: CNII-XII intact, moves all extremities Results - Labs CBC & Chem 7: 06/01/20 23:25 06/02/20 01:46 Labs: Laboratory Last Values WBC 15.1 K/mm3 (4.5-11.0) H 06/01/20 23:25 RBC 4.14 M/mm3 (3.65-5.03) 06/01/20 23:25 Hgb 13.8 gm/dl (10.1-14.3) 06/01/20 23:25 Hct 40.4 % (30.3-42.9) 06/01/20 23: MCV 98 fl (79-97) H 06/01/20 23: MCH 33 pg (28-32) H 06/01/20 23:25 MCHC 34 % (30-34) 06/01/20 23: RDW 12.8 % (13.2-15.2) L 06/01/20 23: Plt Count 316 K/mm3 (140-440) 06/01/20 23:25 Lymph % (Auto) 2.2 % (13.4-35.0) L 06/01/20 23:25 R[place]con % (Auto) 0.8 % (0.0-7.3) 06/01/20 23: Eos % (Auto) 0.0 % (0.0-4.3) 06/01/20 23: Baso % (Auto) 0.1 % (0.0-1.8) 06/01/20 23: Lymph # (Auto) 0.3 K/mm3 (1.2-5.4) L 06/01/20 23:25 [place] # (Auto) 0.1 K/mm3 (0.0-0.8) 06/01/20 23: Eos # (Auto) 0.0 K/mm3 (0.0-0.4) 06/01/20 23:25 Baso # (Auto) 0.0 K/mm3 (0.0-0.1) 06/01/20 23: Seg Neutrophils % [employer] 06/01/20 23: Seg Neutrophils # 14.6 K/mm3 (1.8-7.7) H 06/01/20 23:25 D-Dimer 516.58 ng/mlDDU (0-234) H 06/02/20 01:46 ABG pH 7.193 pH Units (7.350-7.450) L* 06/02/20 10:23 ABG pCO2 58.7 mm Hg 06/02/20 10:23 ABG pO2 122.5 mm Hg (80.0-90.0) H 06/02/20 10:23 ABG HCO3 22.0 mmol/L (20.0-26.0) 06/02/20 10:23 ABG O2 Saturation 97.8 % (95.0-99.0) 06/02/20 10:23 ABG O2 Content 16.7 (0.0-44) 06/02/20 10:23 ABG Base Excess -6.6 mmol/L (-2.0-3.0) L 06/02/20 10:23 ABG Hemoglobin 12.2 gm/dl (12.0-16.0) 06/02/20 10:23 ABG Carboxyhemoglobin 1.3 % (0.0-5.0) 06/02/20 10:23 ABG Methemoglobin 0.6 % (0.0-1.5) 06/02/20 10:23 Oxyhemoglobin 96.0 % (95.0-99.0) 06/02/20 10:23 FiO2 50 % 06/02/20 10:23 Sodium 138 mmol/L (137-145) 06/01/20 23:25 Potassium 3.4 mmol/L (3.6-5.0) L 06/01/20 23:25 Chloride 104.1 mmol/L (98-107) 06/01/20 23:25 Carbon Dioxide 18 mmol/L (22-30) L 06/01/20 23:25 Anion Gap 19 mmol/L 06/01/20 23:25 BUN 10 mg/dL (7-17) 06/01/20 23:25 Creatinine 0.8 mg/dL (0.6-1.2) 06/01/20 23:25 Estimated GFR > 60 ml/min 06/01/20 23:25 BUN/Creatinine Ratio 13 % 06/01/20 23:25 Glucose 181 mg/dL (65-100) H 06/02/20 01:46 Lactic Acid 1.10 mmol/L (0.7-2.0) 06/02/20 10:07 Calcium 9.3 mg/dL (8.4-10.2) 06/01/20 23:25 Ferritin 79.7 ng/mL (10.0-200.0) 06/02/20 01:46 Total Bilirubin 0.30 mg/dL (0.1-1.2) 06/01/20 23:25 AST 16 units/L (5-40) 06/01/20 23:25 ALT 14 units/L (7-56) 06/01/20 23:25 Alkaline Phosphatase 92 units/L (35-129) 06/01/20 23:25 Lactate Dehydrogenase 83 units/L (91-180) L 06/02/20 01:46 C-Reactive Protein 0.30 mg/dL (0.00-1.30) 06/02/20 01:46 Total Protein 7.9 g/dL (6.3-8.2) 06/01/20 23:25 Albumin 4.4 g/dL (3.9-5) 06/01/20 23:25 Albumin/Globulin Ratio 1.3 % 06/01/20 23:25 Procalcitonin < 0.05 ng/mL (<0.15) 06/02/20 01:46 HCG, Qual Negative (Negative) 06/01/20 23:25 Khoury/IV: IV Catheter Type [right Peripheral IV forearm] Active Medications - Current Medications Current Medications: Generic Name Dose Route Start Last Admin Trade Name Freq PRN Reason Stop Dose Admin Acetaminophen 650 mg 06/02/20 01:09 Tylenol PO Q4H PRN Pain MILD(1-3)/Fever >100.5/RUBIO Albuterol/Ipratropium 1 ampul 06/02/20 14:00 Duoneb *Not For Prn Use* IH Q6HRT [facility] Arformoterol Tartrate 15 mcg 06/02/20 11:30 Brovana Nebu IH Q12HRT [facility] Budesonide 0.5 mg 06/02/20 11:30 Pulmicort IH Q12HRT [facility] Enoxaparin Sodium 40 mg 06/02/20 22:00 Enoxaparin SUB-Q QDAY@2200 [facility] Protocol Hydrophilic Ointment 1 applic 06/02/20 09:28 Vaseline Lip Therapy TP Q2HR PRN Dry Lips Sodium Chloride 1,000 mls @ 75 mls/hr 06/02/20 01:15 Nacl 0.9% 1000 Ml IV DIRECT [facility] Ceftriaxone Sodium 2 gm in 100 mls @ 200 mls/hr 06/02/20 22:00 Rocephin/Ns 2 Gm/100 Ml IV Q24H [facility] Protocol Azithromycin 500 mg/ Sodium 250 mls @ 250 mls/hr 06/02/20 22:00 Chloride IV 06/05/20 22:59 Q24H [facility] Protocol Lorazepam 100 mg/ Sodium 100 mls @ 1 mls/hr 06/02/20 10:00 Chloride/ Miscellaneous IV Information TITR HELIO Protocol 1 MG/HR Propofol 1,000 mg in 100 mls @ 2.517 mls/hr 06/02/20 11:00 06/02/20 10:44 Diprivan 10 Mg/Ml IV 20 mcg/kg/min TITR HELIO 10.07 mls/hr Titration Protocol 5 MCG/KG/MIN Lorazepam 2 mg 06/02/20 09:28 Ativan IV Q10MIN PRN Agitation Magnesium Hydroxide 30 ml 06/02/20 01:09 Milk Of Magnesia PO Q4H PRN Constipation Methylprednisolone Sodium Succinate 40 mg 06/02/20 06:00 06/02/20 07:04 Solu-Medrol IV 40 mg Q8HR HELIO Administration Morphine Sulfate 2 mg 06/02/20 01:09 Morphine IV Q4H PRN Pain, Moderate (4-6) Multi-Ingred Cream/Lotion/Oil/Oint 1 applic 06/02/20 09:28 Artificial Tears Ophth Oint OU Q4HR PRN Dry Eye(s) Ondansetron HCl 4 mg 06/02/20 01:09 Zofran IV Q8H PRN Nausea And Vomiting Sodium Chloride 10 ml 06/02/20 10:00 06/02/20 10:23 Sodium Chloride Flush Syringe 10 Ml IV 10 ml BID HELIO Administration Sodium Chloride 10 ml 06/02/20 01:09 Sodium Chloride Flush Syringe 10 Ml IV PRN PRN LINE FLUSH Nutrition/Malnutrition Assess - Dietary Evaluation Nutrition/Malnutrition Findings: Nutrition Notes Start: 06/02/20 10:43 Freq: Status: Active Protocol: Document 06/02/20 10:43 LP (Rec: 06/02/20 10:47 LP [id number]) Nutrition Notes Need for Assessment generated from: MD Order Initial or Follow up Assessment Current Diagnosis Respiratory Failure Other Pertinent Diagnosis Asthma, suspected COVID Current Diet Regular Labs/Tests Reviewed Pertinent Medications Solumedrol Propofol NS at 75ml/hr Height 5 ft 2 in Weight 83.915 kg Max Body Weight (kg) 50.00 BMI 33.8 Weight Status Obese Subjective/Other Information Consult for evaluation of nutrition intakes. Pt on vent in ED. Burn Absent Trauma Absent GI Symptoms None Current % PO Negligible Minimum of two criteria No physical signs of malnutrition #1 Nutrition Diagnosis Inadequate oral intake Etiology ARF As Evidenced by Signs and Symptoms Pt on vent and unable to consume PO Is patient on ventilator? Yes Is Patient Ambulatory and/or Out of Bed No REE-([facility]-confined to bed) 6088.080 Calculation Used for Recommendations [facility] Additional Notes Protein needs are greater than 100g (greater than 2g/kg) Fluid needs are 1ml/kcal Nutrition Intervention Change Diet Order: TF consult or extubation Goal #1 TF consult or extubation Anticipated Discharge Needs: Regular diet Follow-Up By: 06/06/20 Additional Comments Follow for TF consult or extubation
[2020-06-02 12:18] LABS: ABG Base Excess -4.5 mmol/L (-2.0-3.0); ABG HCO3 21.1 mmol/L (20.0-26.0); ABG Methemoglobin 0.7 % (0.0-1.5); ABG Oxygen Saturation 98.6 % (95.0-99.0); ABG PCO2 40.8 mm Hg; ABG PH 7.331 pH Units (7.350-7.450); ABG PO2 137.6 mm Hg (80.0-90.0)
[2020-06-02] MEDS: methylPREDNISolone Sod Succinate 125 MG/2 ML INJ IV SCH ×2 (14:45→23:58)
[2020-06-02] MEDS ORDERED: HYDROmorphone 1 MG/1 ML INJ ONE (14:55)
[2020-06-02 15:01] LABS: C-Reactive Protein 2.2 mg/dL (0.00-1.30)
--- NOTE | 2020-06-02 15:05 | Consultation ---
PULMONARY CRITICAL CARE CONSULTATION CONSULTING PHYSICIAN: Dr. Colon. REASON FOR CONSULTATION: Acute hypoxemic respiratory failure, on mechanical ventilatory support, status asthmaticus. CHIEF COMPLAINT AND HISTORY OF PRESENT ILLNESS: The patient is a 25-year-old female with past medical history significant amongst other things for a diagnosis of asthma, came into the Emergency Room complaining of shortness of breath, difficulty breathing, had been going on for about a couple of days. She was given steroids and bronchodilators en route to the ER by emergency medical services. Shortness of breath is worse with exertion. She had a low-grade fever earlier in the day, but was better. She had denied nausea, vomiting, diarrhea. Denied history of known exposure to COVID-19, but she stated she walked in a intermediate and could have been inadvertently around someone with COVID-19. In the ER, she was given continuous nebulizer treatments. She was found to have an elevated lactic acid level. She was stabilized as best as possible. Reportedly, she was placed on bilevel positive air ventilation therapy; however, she was unable to tolerate it. At some point, a decision was made to semi-electively intubate her. This was done successfully without any problem. We were asked to assist with management. When I stopped by to see her, I was told she had self-extubated about 30 minutes to one hour prior to my presentation. She was resting in bed. She is following commands appropriately. Certainly, still short of breath with increased work of breathing, but without overt accessory muscle use. She responded appropriately. Denied chest pain. Denied palpitations, was willing to give bilevel positive air pressure ventilation therapy another try if necessary and was unwilling to be reintubated except her condition deteriorated. When asked about tobacco use/abuse history, I did not get a reply from her. The above is as much of the history of presentation as I have. PAST MEDICAL HISTORY: Asthma. PAST SURGICAL HISTORY: Unknown. MEDICATIONS: She was on at the time I stopped by to see were reviewed, pertinent medications include the following: Tylenol 650 mg p.o. q. 4 hours p.r.n. mild pain or fever, all p.o. meds via the feeding tube, Zithromax 500 mg IV daily, Rocephin 2 g IV daily, Lovenox 40 mg subcutaneous daily, p.r.n. Ativan earlier. She had been on an Ativan drip earlier. She was also on a propofol drip according to the nurse at 40 mcg per kilogram per minute when she self-extubated. She is on Solu-Medrol 40 mg IV q. 8 hours, Zofran 4 mg IV q. 8 hours p.r.n. nausea and vomiting, morphine sulfate 2 mg IV q. 4 hours p.r.n. moderate pain. ALLERGIES: No known drug allergies. DIET: Slightly obese lady. Denies acute weight loss or gain in the preceding few weeks to months. FAMILY AND SOCIAL HISTORY: Lives in the community. Alcohol, tobacco, or illicit drug use or abuse history are unobtainable. FAMILY HISTORY: Also unobtainable. REVIEW OF SYSTEMS: Difficult to obtain secondary the patient's medical and mental condition. Since she has been here, no gross hematochezia or melena, no gross hematuria, no hematemesis. No hemoptysis. Denies dysuria. Complete 13-system review of system was obtained as best as I could. Pertinent positives and/or negatives as in body of the history above, otherwise they are noncontributory or unobtainable. PHYSICAL EXAMINATION: VITAL SIGNS: At presentation, she had a low-grade fever of 99.1 degrees Fahrenheit, pulse of 120, respiratory rate initially recorded as 17, blood pressure 106/69, O2 sats were 100%, inspired oxygen concentration at that time was not recorded. When I stopped by to see, O2 sats were 99% that was on 40% Ventimask I believe, respiratory rate was about 27 at that time. GENERAL: Again, she is a young female with mildly increased respiratory effort at rest without accessory muscle use at the time of my evaluation. HEAD, EYES, EARS, NOSE AND THROAT: Anicteric. No conjunctival erythema. Oropharynx was moist. She had a breathing treatment mask over her face. NECK: Grossly, there were no palpable lymph nodes in the supraclavicular or submandibular lymph node chains. No gross jugular venous distention, no thyromegaly. LUNGS: Auscultation of both lung paul significant for bilateral expiratory wheezing and diminished air movement. HEART: Heart sounds 1 and 2 are heard. Regular tachycardia at the time of my evaluation without overt rubs or murmurs. ABDOMEN: Soft, full, bowel sounds are positive, nontender, no palpable hepatosplenomegaly. EXTREMITIES: Without overt digital clubbing or cyanosis, no pedal edema. Pedal pulses are 2+ bilaterally. NEUROLOGIC: Pupils are equal, round, about 4 mm, reactive to light. Extraocular muscle movements were intact. She moves all 4 extremities spontaneously. PSYCHIATRIC: Her mood and affect were calm. SKIN: Normal turgor in the areas examined without overt cellulitis or rash. Please see the wound care nurse's notes for full description of skin. LABORATORY DATA: From my review are as follows: Admission white cell count 15,100, hemoglobin 13.8, hematocrit 40.4, platelet count was 316. No manual differential. D-dimer was slightly elevated at 517. Arterial blood gas showed a pH of 7.33, pCO2 of 41, pO2 of 138 that was on 50% FiO2. Earlier gas before intubation showed a pH of 7.19, pCO2 of 59 and a pO2 of 123 on 50%. Serum sodium 138, potassium 3.4, chloride 104, bicarbonate 18, BUN 10, creatinine 0.8, glucose 161. Lactic acid level was 5.3 at presentation, down to 1.10. Liver function tests essentially within normal limits. CRP 0.3. Procalcitonin within normal limits. Urine test was negative. No cultures for my review. Chest x-ray has been reviewed and post-intubation chest x-ray essentially shows ET tube in good position, evidence of hyperinflation without obvious barotrauma. No gross pneumothorax, no gross bony fractures, no focal infiltrates that I can see. ASSESSMENT: 1. Acute hypoxemic respiratory failure, status post mechanical ventilatory support. 2. Acute asthma exacerbation with status. 3. Leukocytosis that does not appear to be infectious. 4. Elevated serum D-dimer. 5. Mild hypokalemia. 6. Mild metabolic acidosis, predominantly lactic acidosis, now resolving. PLAN: She looks relatively stable. She is cooperative. She agrees to give BiPAP trial if she gets short of breath and is requesting that she not be intubated except emergently or ____ emergently. We will watch her closely. We will increase her bronchodilators to q. 6 hours and make DuoNeb scheduled. I will also add Brovana and inhaled corticosteroids. I will increase the systemic steroid dose to 60 mg IV q. 6 hours with a dose now. Oxygen will be weaned to keep sats greater than or equal to about 90%. Aspiration precautions will be maintained. Appropriately I would say especially considering her work and job environment in COVID-19 isolation, which includes contact and airborne precautions, rapid coronavirus testing will be ordered. Infectious Disease consultation will be at the behest of the attending physician. She is appropriately on GI and DVT prophylaxis. If she decompensates, clearly we will reintubate her. Flu and pneumonia vaccination will be addressed per protocol. We will continue empiric community-acquired pneumonia therapy. Thank you very much for the consult. We will follow along and make further recommendations as picture progresses/becomes clearer. I should note that bilateral lower extremity Dopplers will be ordered as a screen to evaluate for DVTs and pulse or minus a CT angiogram once she is more stable. At this time, I spent about 35-40 minutes of critical care time without overlap and excluding any procedural time that may be necessary. I should note she is at high risk of decompensation/ from cardiopulmonary system decompensation if her asthma continues to progress. JOB# [id number] JONES/CRISTA
[2020-06-02] MEDS: IPRATROPIUM/ALBUTEROL SULFATE 3 ML AMPUL.NEB IH SCH ×2 (15:28→21:21)
[2020-06-02] MEDS: ARFORMOTEROL 15 MCG/2 ML NEBU IH SCH ×2 (17:32→21:20)
[2020-06-02] MEDS ORDERED: ARFORMOTEROL 15 MCG/2 ML NEBU IH ONE (21:11)
[2020-06-02] MEDS ORDERED: BUDESONIDE 0.5 MG/2 ML NEBU IH ONE (21:11)
[2020-06-02] MEDS: BUDESONIDE 0.5 MG/2 ML NEBU IH SCH ×2 (21:20→21:21)
[2020-06-02] MEDS: ENOXAPARIN 40 MG/0.4 ML INJ SUB-Q SCH (23:57)
[2020-06-02] MEDS: cefTRIAXone/NS 2 GM/100 ML 2 GM/100 ML BAG IV SCH (23:58)
[2020-06-03] MEDS: AZITHROMYCIN 500 MG in SODIUM CHLORIDE 0.9% 250ML 250 ML IV SCH ×2 (00:39→21:38)
[2020-06-03] MEDS: IPRATROPIUM/ALBUTEROL SULFATE 3 ML AMPUL.NEB IH SCH ×4 (02:30→19:45)
[2020-06-03] MEDS: SODIUM CHLORIDE 0.9% 1000 ML 1,000 ML IV SCH ×2 (05:21→23:42)
[2020-06-03] MEDS: methylPREDNISolone Sod Succinate 125 MG/2 ML INJ IV SCH ×5 (05:22→23:42)
[2020-06-03 06:42] LABS: Hematocrit 34.8 % (30.3-42.9); Hemoglobin 11.7 gm/dl (10.1-14.3); Mean Corpuscular HGB Conc 34 % (30-34); Mean Corpuscular Volume 98 fl (79-97); Platelet Count 302 K/mm3 (140-440); Red Blood Count 3.57 M/mm3 (3.65-5.03); Red Cell Distribution Width 12.9 % (13.2-15.2)
[2020-06-03 06:47] LABS: INR 1.11 (0.87-1.13)
[2020-06-03 06:53] LABS: Blood Urea Nitrogen 10 mg/dL (7-17); Calcium 9.1 mg/dL (8.4-10.2); Hemolysis Index 5
[2020-06-03 06:54] LABS: BUN/Creatinine Ratio 14
[2020-06-03] MEDS: MONTELUKAST 10 MG TAB PO SCH ×2 (07:22→17:53)
[2020-06-03] MEDS: ARFORMOTEROL 15 MCG/2 ML NEBU IH SCH ×2 (08:07→19:35)
[2020-06-03] MEDS: BUDESONIDE 0.5 MG/2 ML NEBU IH SCH ×2 (08:07→19:35)
[2020-06-03 08:14] LABS: Basophils % (Manual) 0 % (0.0-1.8); Eosinophils % (Manual) 0 % (0.0-4.3); RBC Morphology Normal; Total Cells Counted 100
[2020-06-03 08:15] LABS: Platelet Estimate Consistent w Auto
--- NOTE | 2020-06-03 08:46 | XRay Report ---
CHEST 1 VIEW INDICATION / CLINICAL INFORMATION: follow up respiratory failure. COMPARISON: 06/02/2020 FINDINGS: SUPPORT DEVICES: Interval removal of previously noted ET and NG tubes. HEART / MEDIASTINUM: Stable. LUNGS / PLEURA: Persistent mild patchy perihilar opacities bilaterally are not significant changed. N o pleural effusion. No pneumothorax. ADDITIONAL FINDINGS: No significant additional findings. IMPRESSION: 1. Interval removal of ET tube and NG tube. 2. Mild patchy opacities are again noted in the perihilar region and unchanged from prior exam. Signer Name: Dmitriy Feliciano MD Signed: 06/03/2020 8:42 AM Workstation Name: [id number]
--- NOTE | 2020-06-03 09:32 | Progress Note ---
Assessment and Plan Assessment and plan: Acute asthma exacerbation We will continue patient on nebulizing treatments and IV steroid. We will keep O2 saturation greater or equal to 94%. Patient also placed on empiric IV antibiotics for possible underlying bronchitis. Will also consult pulmonology for evaluation. Acute hypoxic respiratory failure. Etiology secondary to above. Patient was in tubated but has extubated herself. Await pulmonary evaluation Suspected COVID-[address] consult to infectious disease for evaluation and recommendation. Meanwhile we await COVID-19 testing. Sepsis Present on admission. Etiology may be secondary to COVID-19 pneumonia. Patient meets criteria given the leukocytosis tachycardia and diagnosis of pneumonia. Follow-up Covid testing and monitor closely. DVT prophylaxis Patient placed on subcutaneous Lovenox. 06/03/2020. Continue bronchodilators/nebulizers/inhaled corticosteroids. Continue empiric IV antibiotics. Continue IV Solu-Medrol and taper per pulmona ry recommendations. Continue O2 and BiPAP as clinically indicated. Await Covid testing. Follow inflammatory markers. History Interval history: Patient's respiratory status much improved and near baseline. Continue O2 and supportive care. Hospitalist Physical - Constitutional Vitals: Temp Pulse Resp BP Pulse Ox 98.6 F 108 H 20 101/50 93 06/03/20 05:58 06/03/20 08:08 06/03/20 08:08 06/03/20 05:58 06/03/20 08:08 General appearance: Present: no acute distress, well-nourished - EENT Eyes: Present: PERRL, EOM intact ENT: hearing intact, clear oral mucosa, dentition normal - Neck Neck: Present: supple, normal ROM - Respiratory Respiratory effort: normal Respiratory: bilateral: CTA - Cardiovascular Rhythm: regular Heart Sounds: Present: S1 & S2. Absent: gallop, rub - Extremities Extremities: no ischemia, No edema, Full ROM - Abdominal General gastrointestinal: soft, non-tender, non-distended, normal bowel sounds - Integumentary Integumentary: Present: clear, warm, dry - Neurologic Neurologic: CNII-XII intact, moves all extremities Results - Labs CBC & Chem 7: 06/03/20 05:04 06/03/20 05:04 Labs: Laboratory Last Values WBC 24.4 K/mm3 (4.5-11.0) H 06/03/20 05:04 RBC 3.57 M/mm3 (3.65-5.03) L 06/03/20 05:04 Hgb 11.7 gm/dl (10.1-14.3) 06/03/20 05:04 Hct 34.8 % (30.3-42.9) 06/03/20 05:04 MCV 98 fl (79-97) H 06/03/20 05:04 MCH 33 pg (28-32) H 06/03/20 05:04 MCHC 34 % (30-34) 06/03/20 05:04 RDW 12.9 % (13.2-15.2) L 06/03/20 05:04 Plt Count 302 K/mm3 (140-440) 06/03/20 05:04 Lymph % (Auto) 2.2 % (13.4-35.0) L 06/01/20 23:25 Donley % (Auto) 0.8 % (0.0-7.3) 06/01/20 23:25 Eos % (Auto) 0.0 % (0.0-4.3) 06/01/20 23:25 Baso % (Auto) 0.1 % (0.0-1.8) 06/01/20 23:25 Lymph # (Auto) 0.3 K/mm3 (1.2-5.4) L 06/01/20 23:25 Donley # (Auto) 0.1 K/mm3 (0.0-0.8) 06/01/20 23:25 Eos # (Auto) 0.0 K/mm3 (0.0-0.4) 06/01/20 23:25 Baso # (Auto) 0.0 K/mm3 (0.0-0.1) 06/01/20 23:25 Add Manual Diff Complete 06/03/20 05:04 Total Counted 100 06/03/20 05:04 Seg Neutrophils % Neon Sign Worker 06/03/20 05:04 Seg Neuts % (Manual) 98.0 % (40.0-70.0) H 06/03/20 05:04 Band Neutrophils % 0 % 06/03/20 05:04 Lymphocytes % (Manual) 1.0 % (13.4-35.0) L 06/03/20 05:04 Reactive Lymphs % (Man) 0 % 06/03/20 05:04 Monocytes % (Manual) 1.0 % (0.0-7.3) 06/03/20 05:04 Eosinophils % (Manual) 0 % (0.0-4.3) 06/03/20 05:04 Basophils % (Manual) 0 % (0.0-1.8) 06/03/20 05:04 Metamyelocytes % 0 % 06/03/20 05:04 Myelocytes % 0 % 06/03/20 05:04 Promyelocytes % 0 % 06/03/20 05:04 Blast Cells % 0 % 06/03/20 05:04 Nucleated RBC % Not Reportable 06/03/20 05:04 Seg Neutrophils # 14.6 K/mm3 (1.8-7.7) H 06/01/20 23:25 Seg Neutrophils # Man 23.9 K/mm3 (1.8-7.7) H 06/03/20 05:04 Band Neutrophils # 0.0 K/mm3 06/03/20 05:04 Lymphocytes # (Manual) 0.2 K/mm3 (1.2-5.4) L 06/03/20 05:04 Abs React Lymphs (Man) 0.0 K/mm3 06/03/20 05:04 Monocytes # (Manual) 0.2 K/mm3 (0.0-0.8) 06/03/20 05:04 Eosinophils # (Manual) 0.0 K/mm3 (0.0-0.4) 06/03/20 05:04 Basophils # (Manual) 0.0 K/mm3 (0.0-0.1) 06/03/20 05:04 Metamyelocytes # 0.0 K/mm3 06/03/20 05:04 Myelocytes # 0.0 K/mm3 06/03/20 05:04 Promyelocytes # 0.0 K/mm3 06/03/20 05:04 Blast Cells # 0.0 K/mm3 06/03/20 05:04 WBC Morphology Not Reportable 06/03/20 05:04 Hypersegmented Neuts Not Reportable 06/03/20 05:04 Hyposegmented Neuts Not Reportable 06/03/20 05:04 Hypogranular Neuts Not Reportable 06/03/20 05:04 Smudge Cells Not Reportable 06/03/20 05:04 Toxic Granulation Not Reportable 06/03/20 05:04 Toxic Vacuolation Not Reportable 06/03/20 05:04 Dohle Bodies Not Reportable 06/03/20 05:04 Pelger-Huet Anomaly Not Reportable 06/03/20 05:04 Carla Rods Not Reportable 06/03/20 05:04 Platelet Estimate Consistent w auto 06/03/20 05:04 Clumped Platelets Not Reportable 06/03/20 05:04 Plt Clumps, EDTA Not Reportable 06/03/20 05:04 Large Platelets Not Reportable 06/03/20 05:04 Giant Platelets Not Reportable 06/03/20 05:04 Platelet Satelliting Not Reportable 06/03/20 05:04 Plt Morphology Comment Not Reportable 06/03/20 05:04 RBC Morphology Normal 06/03/20 05:04 Dimorphic RBCs Not Reportable 06/03/20 05:04 Polychromasia Not Reportable 06/03/20 05:04 Hypochromasia Not Reportable 06/03/20 05:04 Poikilocytosis Not Reportable 06/03/20 05:04 Anisocytosis Not Reportable 06/03/20 05:04 Microcytosis Not Reportable 06/03/20 05:04 Macrocytosis Not Reportable 06/03/20 05:04 Spherocytes Not Reportable 06/03/20 05:04 Pappenheimer Bodies Not Reportable 06/03/20 05:04 Sickle Cells Not Reportable 06/03/20 05:04 Target Cells Not Reportable 06/03/20 05:04 Tear Drop Cells Not Reportable 06/03/20 05:04 Ovalocytes Not Reportable 06/03/20 05:04 Helmet Cells Not Reportable 06/03/20 05:04 [place] Bodies Not Reportable 06/03/20 05:04 [place] Rings Not Reportable 06/03/20 05:04 Jamshid Cells Not Reportable 06/03/20 05:04 Bite Cells Not Reportable 06/03/20 05:04 Crenated Cell Not Reportable 06/03/20 05:04 Elliptocytes Not Reportable 06/03/20 05:04 Acanthocytes (Spur) Not Reportable 06/03/20 05:04 Rouleaux Not Reportable 06/03/20 05:04 Hemoglobin C Crystals Not Reportable 06/03/20 05:04 Schistocytes Not Reportable 06/03/20 05:04 Malaria parasites Not Reportable 06/03/20 05:04 Lee Bodies Not Reportable 06/03/20 05:04 Hem Pathologist Commnt No 06/03/20 05:04 PT 14.1 Sec. (12.2-14.9) 06/03/20 05:04 INR 1.11 (0.87-1.13) 06/03/20 05:04 D-Dimer 1283.30 ng/mlDDU (0-234) H 06/02/20 14:25 ABG pH 7.331 pH Units (7.350-7.450) L 06/02/20 11:50 ABG pCO2 40.8 mm Hg 06/02/20 11:50 ABG pO2 137.6 mm Hg (80.0-90.0) H 06/02/20 11:50 ABG HCO3 21.1 mmol/L (20.0-26.0) 06/02/20 11:50 ABG O2 Saturation 98.6 % (95.0-99.0) 06/02/20 11:50 ABG O2 Content 17.3 (0.0-44) 06/02/20 11:50 ABG Base Excess -4.5 mmol/L (-2.0-3.0) L 06/02/20 11:50 ABG Hemoglobin 12.5 gm/dl (12.0-16.0) 06/02/20 11:50 ABG Carboxyhemoglobin 1.1 % (0.0-5.0) 06/02/20 11:50 ABG Methemoglobin 0.7 % (0.0-1.5) 06/02/20 11:50 Oxyhemoglobin 96.8 % (95.0-99.0) 06/02/20 11:50 FiO2 50 % 06/02/20 11:50 Sodium 139 mmol/L (137-145) 06/03/20 05:04 Potassium 4.1 mmol/L (3.6-5.0) D 06/03/20 05:04 Chloride 106.0 mmol/L (98-107) 06/03/20 05:04 Carbon Dioxide 24 mmol/L (22-30) 06/03/20 05:04 Anion Gap 13 mmol/L 06/03/20 05:04 BUN 10 mg/dL (7-17) 06/03/20 05:04 Creatinine 0.7 mg/dL (0.6-1.2) 06/03/20 05:04 Estimated GFR > 60 ml/min 06/03/20 05:04 BUN/Creatinine Ratio 14 % 06/03/20 05:04 Glucose 110 mg/dL (65-100) H 06/03/20 05:04 Lactic Acid 1.10 mmol/L (0.7-2.0) 06/02/20 10:07 Calcium 9.1 mg/dL (8.4-10.2) 06/03/20 05:04 Ferritin 95.7 ng/mL (10.0-200.0) 06/02/20 14:25 Total Bilirubin 0.30 mg/dL (0.1-1.2) 06/01/20 23:25 AST 16 units/L (5-40) 06/01/20 23:25 ALT 14 units/L (7-56) 06/01/20 23:25 Alkaline Phosphatase 92 units/L (35-129) 06/01/20 23:25 Lactate Dehydrogenase 176 units/L (91-180) 06/02/20 14:25 C-Reactive Protein 2.20 mg/dL (0.00-1.30) H 06/02/20 14:25 Total Protein 7.9 g/dL (6.3-8.2) 06/01/20 23:25 Albumin 4.4 g/dL (3.9-5) 06/01/20 23:25 Albumin/Globulin Ratio 1.3 % 06/01/20 23:25 Procalcitonin < 0.05 ng/mL (<0.15) 06/02/20 01:46 HCG, Qual Negative (Negative) 06/01/20 23:25 Khoury/IV: Voiding Method Toilet IV Catheter Type [right Peripheral IV forearm] Active Medications - Current Medications Current Medications: Generic Name Dose Route Start Last Admin Trade Name Freq PRN Reason Stop Dose Admin Acetaminophen 650 mg 06/02/20 01:09 Tylenol PO Q4H PRN Pain MILD(1-3)/Fever >100.5/RUBIO Albuterol/Ipratropium 1 ampul 06/02/20 14:00 06/03/20 08:08 Duoneb *Not For Prn Use* IH 1 ampul Q6HRT HELIO Administration Arformoterol Tartrate 15 mcg 06/02/20 12:00 06/03/20 08:07 Brodenise Nebu IH 15 mcg Q12HRT HLEIO Administration Budesonide 0.5 mg 06/02/20 11:30 06/03/20 08:07 Pulmicort IH 0.5 mg Q12HRT HELIO Administration Enoxaparin Sodium 40 mg 06/02/20 22:00 06/02/20 23:57 Enoxaparin SUB-Q 40 mg QDAY@2200 [facility] Administration Protocol Hydrophilic Ointment 1 applic 06/02/20 09:28 Vaseline Lip Therapy TP Q2HR PRN Dry Lips Sodium Chloride 1,000 mls @ 75 mls/hr 06/02/20 01:15 06/03/20 05:21 Nacl 0.9% 1000 Ml IV 75 mls/hr DIRECT HELIO Administration Ceftriaxone Sodium 2 gm in 100 mls @ 200 mls/hr 06/02/20 22:00 06/02/20 23:58 Rocephin/Ns 2 Gm/100 Ml IV 200 mls/hr Q24H [facility] Administration Protocol Azithromycin 500 mg/ Sodium 250 mls @ 250 mls/hr 06/02/20 22:00 06/03/20 00:39 Chloride IV 06/05/20 22:59 250 mls/hr Q24H [facility] Administration Protocol Magnesium Hydroxide 30 ml 06/02/20 01:09 Milk Of Magnesia PO Q4H PRN Constipation Methylprednisolone Sodium Succinate 60 mg 06/02/20 13:00 06/03/20 07:22 Solu-Medrol IV Not Given Q6HR HELIO Montelukast Sodium 10 mg 06/02/20 18:00 06/03/20 07:22 Singulair PO Not Given QPM HELIO Morphine Sulfate 2 mg 06/02/20 01:09 Morphine IV Q4H PRN Pain, Moderate (4-6) Multi-Ingred Cream/Lotion/Oil/Oint 1 applic 06/02/20 09:28 Artificial Tears Ophth Oint OU Q4HR PRN Dry Eye(s) Ondansetron HCl 4 mg 06/02/20 01:09 Zofran IV Q8H PRN Nausea And Vomiting Sodium Chloride 10 ml 06/02/20 10:00 06/03/20 00:06 Sodium Chloride Flush Syringe 10 Ml IV 10 ml BID HELIO Administration Sodium Chloride 10 ml 06/02/20 01:09 Sodium Chloride Flush Syringe 10 Ml IV PRN PRN LINE FLUSH Nutrition/Malnutrition Assess - Dietary Evaluation Nutrition/Malnutrition Findings: Nutrition Notes Start: 06/02/20 10:43 Freq: Status: Active Protocol: Document 06/02/20 10:43 LP (Rec: 06/02/20 10:47 LP [id number]) Nutrition Notes Need for Assessment generated from: MD Order Initial or Follow up Assessment Current Diagnosis Respiratory Failure Other Pertinent Diagnosis Asthma, suspected COVID Current Diet Regular Labs/Tests Reviewed Pertinent Medications Solumedrol Propofol NS at 75ml/hr Height 5 ft 2 in Weight 83.915 kg [place] Body Weight (kg) 50.00 BMI 33.8 Weight Status Obese Subjective/Other Information Consult for evaluation of nutrition intakes. Pt on vent in ED. Burn Absent Trauma Absent GI Symptoms None Current % PO Negligible Minimum of two criteria No physical signs of malnutrition #1 Nutrition Diagnosis Inadequate oral intake Etiology ARF As Evidenced by Signs and Symptoms Pt on vent and unable to consume PO Is patient on ventilator? Yes Is Patient Ambulatory and/or Out of Bed No REE-([facility]-confined to bed) [phone] Calculation Used for Recommendations [facility] Additional Notes Protein needs are greater than 100g (greater than 2g/kg) Fluid needs are 1ml/kcal Nutrition Intervention Change Diet Order: TF consult or extubation Goal #1 TF consult or extubation Anticipated Discharge Needs: Regular diet Follow-Up By: 06/06/20 Additional Comments Follow for TF consult or extubation
--- NOTE | 2020-06-03 13:57 | Consultation ---
History of Present Illness - Reason for Consult Consult date: 06/03/20 PUI - COVID Requesting physician: NORBERTO TALAMANTES III - History of Present Illness The patient is a 25-year-old female with known history of asthma came into the emergency room with complaints of shortness of breath. Was noted to have an asthma exacerbation. She has otherwise been afebrile. Infectious diseases was consulted to evaluate for COVID-19. Her test is pending. She initially was intubated in the ER due to respiratory distress. She subsequently self extubated. Review of Systems: reviewed in the chart, unable to obtain directly due to PPE preservation and minimize risk of transmission Past History Past Medical History: other (Asthma, Ecxema) Past Surgical History: No surgical history Social history: no significant social history Family history: no significant family history Medications and Allergies Allergies Allergy/AdvReac Type Severity Reaction Status Date / Time No Known Allergies Allergy Verified 06/01/20 23:17 Home Medications Medication Instructions Recorded Confirmed Last Taken Type Albuterol Mdi (or & Nicu Only) 2 puff IH QID PRN #1 inhalation 02/16/17 06/02/20 Unknown Rx [ProAir HFA Inhaler] Azithromycin [Zithromax Z-NALINI] 250 mg PO QDAY #6 tablet 02/16/17 06/02/20 Unknown Rx Ibuprofen [Motrin] 800 mg PO Q8HR PRN #15 tablet 02/16/17 06/02/20 Unknown Rx predniSONE [Deltasone] 40 mg PO QDAY #10 tab 02/16/17 06/02/20 Unknown Rx Active Meds: Active Medications Acetaminophen (Tylenol) 650 mg PO Q4H PRN PRN Reason: Pain MILD(1-3)/Fever >100.5/RUBIO Albuterol/Ipratropium (Duoneb *Not For Prn Use*) 1 ampul IH Q6HRT [facility] Last Admin: 06/03/20 08:08 Dose: 1 ampul Documented by: Arformoterol Tartrate (Brovana Nebu) 15 mcg IH Q12HRT [facility] Last Admin: 06/03/20 08:07 Dose: 15 mcg Documented by: Budesonide (Pulmicort) 0.5 mg IH Q12HRT [facility] Last Admin: 06/03/20 08:07 Dose: 0.5 mg Documented by: Enoxaparin Sodium (Enoxaparin) 40 mg SUB-Q QDAY@2200 HELIO; Protocol Last Admin: 06/02/20 23:57 Dose: 40 mg Documented by: Hydrophilic Ointment (Vaseline Lip Therapy) 1 applic TP Q2HR PRN PRN Reason: Dry Lips Sodium Chloride (Nacl 0.9% 1000 Ml) 1,000 mls @ 75 mls/hr IV DIRECT HELIO Last Admin: 06/03/20 05:21 Dose: 75 mls/hr Documented by: Ceftriaxone Sodium (Rocephin/Ns 2 Gm/100 Ml) 2 gm in 100 mls @ 200 mls/hr IV Q24H HELIO; Protocol Last Admin: 06/02/20 23:58 Dose: 200 mls/hr Documented by: Azithromycin 500 mg/ Sodium (Chloride) 250 mls @ 250 mls/hr IV Q24H HELIO; Protocol Stop: 06/05/20 22:59 Last Admin: 06/03/20 00:39 Dose: 250 mls/hr Documented by: Magnesium Hydroxide (Milk Of Magnesia) 30 ml PO Q4H PRN PRN Reason: Constipation Methylprednisolone Sodium Succinate (Solu-Medrol) 60 mg IV Q6HR [facility] Last Admin: 06/03/20 13:14 Dose: 60 mg Documented by: Montelukast Sodium (Singulair) 10 mg PO QPM [facility] Last Admin: 06/03/20 07:22 Dose: Not Given Documented by: Morphine Sulfate (Morphine) 2 mg IV Q4H PRN PRN Reason: Pain, Moderate (4-6) Multi-Ingred Cream/Lotion/Oil/Oint (Artificial Tears Ophth Oint) 1 applic OU Q4HR PRN PRN Reason: Dry Eye(s) Ondansetron HCl (Zofran) 4 mg IV Q8H PRN PRN Reason: Nausea And Vomiting Sodium Chloride (Sodium Chloride Flush Syringe 10 Ml) 10 ml IV BID [facility] Last Admin: 06/03/20 12:39 Dose: 10 ml Documented by: Sodium Chloride (Sodium Chloride Flush Syringe 10 Ml) 10 ml IV PRN PRN PRN Reason: LINE FLUSH Physical Examination - Physical Exam Narrative exam: Physical Exam (reviewed in chart due to PPE conservation and minimize risk of transmission) Constitutional: limited due to PPE conservation strategy Head, Ears, Nose: limited due to PPE conservation strategy Eyes: limited due to PPE conservation strategy Neck: limited due to PPE conservation strategy Oral: limited due to PPE conservation strategy Cardiovascular: limited due to PPE conservation strategy Respiratory: limited due to PPE conservation strategy GI: limited due to PPE conservation strategy Musculoskeletal: limited due to PPE conservation strategy Skin: limited due to PPE conservation strategy Hem/Lymphatic: limited due to PPE conservation strategy Psych: limited due to PPE conservation strategy Neurological: limited due to PPE conservation strategy - Constitutional Vitals: Vital Signs Temp Pulse Resp BP Pulse Ox 98.9 F 90 20 96/49 95 06/03/20 13:38 06/03/20 13:38 06/03/20 08:08 06/03/20 13:38 06/03/20 13:38 Temperature -Last 24 Hours Temperature 98.9 F Temperature 98.6 F Temperature 98.6 F Results - Labs CBC & Chem 7: 06/03/20 05:04 06/03/20 05:04 Labs: Abnormal lab results 06/02/20 06/02/20 06/03/20 Range/Units 14:25 14:25 05:04 WBC 24.4 H (4.5-11.0) K/mm3 RBC 3.57 L (3.65-5.03) M/mm3 MCV 98 H (79-97) fl MCH 33 H (28-32) pg RDW 12.9 L (13.2-15.2) % Seg Neuts % (Manual) 98.0 H (40.0-70.0) % Lymphocytes % (Manual) 1.0 L (13.4-35.0) % Seg Neutrophils # Man 23.9 H (1.8-7.7) K/mm3 Lymphocytes # (Manual) 0.2 L (1.2-5.4) K/mm3 D-Dimer 1283.30 H (0-234) ng/mlDDU Glucose 143 H (65-100) mg/dL C-Reactive Protein 2.20 H (0.00-1.30) mg/dL 06/03/20 Range/Units 05:04 WBC (4.5-11.0) K/mm3 RBC (3.65-5.03) M/mm3 MCV (79-97) fl MCH (28-32) pg RDW (13.2-15.2) % Seg Neuts % (Manual) (40.0-70.0) % Lymphocytes % (Manual) (13.4-35.0) % Seg Neutrophils # Man (1.8-7.7) K/mm3 Lymphocytes # (Manual) (1.2-5.4) K/mm3 D-Dimer (0-234) ng/mlDDU Glucose 110 H (65-100) mg/dL C-Reactive Protein (0.00-1.30) mg/dL - Imaging and Cardiology Chest x-ray: report reviewed, image reviewed (no infiltrate) Assessment and Plan Cultures: SARS CoV2 PCR: Pending sputum; no growth thus far A/P: 25-year-old female with known history of asthma : #Status asthmaticus: Already on steroids. Pulmonary following. CXR without pneumonia #Acute respiratory failure: Briefly on mechanical ventilation. Self extubated. Has remained on room air. Recs: Already on steroids for asthma per pulmonary service Follow-up COVID-19 PCR, even if positive, patient is on room air, does not qualify for remdesivir Okay to finish 5 days of CAP antibiotics Deisi Koch MD, FACP [facility] ([facility] O: [phone] F: [phone]
[2020-06-03] MEDS: ENOXAPARIN 40 MG/0.4 ML INJ SUB-Q SCH (21:34)
[2020-06-03] MEDS: cefTRIAXone/NS 2 GM/100 ML 2 GM/100 ML BAG IV SCH (21:35)
--- NOTE | 2020-06-03 22:18 | Progress Note ---
Assessment and Plan Patient alert, awake. Resting on room air. O2 saturation 100%. Has slight cough. Says in general feeling better. Patient afebrile and has leukocytosis. Chest xray done 06/03/20 reported Interval removal of ET tube and NG tube. Mild patchy opacities are again noted in the perihilar region and unchanged from prior exam. Patient is on Zithromax, ceftriaxone, Methyl prednisone, S/C Lovenox. and bronchodilators. Patient intubated and extubated. - Patient Problems (1) Person under investigation for COVID-19 Current Visit: Yes Status: Acute Plan to address problem: No COVID test result seen in the computer. (2) Respiratory failure Current Visit: Yes Status: Acute Plan to address problem: Patient intubated and extubated. Patient presently on room air. O2 saturation 100% Patient also on methyl prednisone and bronchodilators. Subjective Date of service: 06/03/20 Interval history: Patient alert, awake. Resting on room air. O2 saturation 100%. Has slight cough. Says in general feeling better. Patient afebrile and has leukocytosis. Chest xray done 06/03/20 reported Interval removal of ET tube and NG tube. Mild patchy opacities are again noted in the perihilar region and unchanged from prior exam. Patient is on Zithromax, ceftriaxone, Methyl prednisone, S/C Lovenox. and bronchodilators. Patient intubated and extubated. Objective Vital Signs - 12hr 06/03/20 06/03/20 06/03/20 13:38 13:59 19:35 Temperature 98.9 F Pulse Rate 90 Pulse Rate [ 83 110 H Anterior Bilateral Throughout] Respiratory 20 14 Rate [Anterior Bilateral Throughout] Blood Pressure 96/49 O2 Sat by Pulse 95 Oximetry 06/03/20 20:19 Temperature Pulse Rate Pulse Rate [ Anterior Bilateral Throughout] Respiratory Rate [Anterior Bilateral Throughout] Blood Pressure O2 Sat by Pulse 100 Oximetry Constitutional: no acute distress, alert Eyes: non-icteric ENT: oropharynx moist Neck: supple, no lymphadenopathy Ascultation: Bilateral: rhonchi Cardiovascular: regular rate and rhythm Gastrointestinal: normoactive bowel sounds, soft, non-tender Integumentary: normal Extremities: no cyanosis, no edema Neurologic: normal mental status, non-focal exam, pupils equal and round, CN II- XII normal Psychiatric: anxious CBC and BMP: 11/27/20 05:04 06/03/20 05:04 ABG, PT/INR, D-dimer: ABG ABG pH 7.331 pH Units (7.350-7.450) L 06/02/20 11:50 ABG pCO2 40.8 mm Hg 06/02/20 11:50 ABG pO2 137.6 mm Hg (80.0-90.0) H 06/02/20 11:50 ABG O2 Saturation 98.6 % (95.0-99.0) 06/02/20 11:50 PT/INR, D-dimer PT 14.1 Sec. (12.2-14.9) 06/03/20 05:04 INR 1.11 (0.87-1.13) 06/03/20 05:04 D-Dimer 1283.30 ng/mlDDU (0-234) H 06/02/20 14:25 Abnormal lab findings: Abnormal Labs 06/01/20 06/01/20 06/01/20 23:25 23:25 23:25 WBC 15.1 H RBC MCV 98 H MCH 33 H RDW 12.8 L Lymph % (Auto) 2.2 L Lymph # (Auto) 0.3 L Seg Neuts % (Manual) Lymphocytes % (Manual) Seg Neutrophils # 14.6 H Seg Neutrophils # Man Lymphocytes # (Manual) D-Dimer ABG pH ABG pO2 ABG Base Excess Oxyhemoglobin Potassium 3.4 L Carbon Dioxide 18 L Glucose 161 H Lactic Acid 5.30 H* Lactate Dehydrogenase C-Reactive Protein 06/02/20 06/02/20 06/02/20 01:46 01:46 01:46 WBC RBC MCV MCH RDW Lymph % (Auto) Lymph # (Auto) Seg Neuts % (Manual) Lymphocytes % (Manual) Seg Neutrophils # Seg Neutrophils # Man Lymphocytes # (Manual) D-Dimer 516.58 H ABG pH ABG pO2 ABG Base Excess Oxyhemoglobin Potassium Carbon Dioxide Glucose 181 H Lactic Acid 5.30 H* Lactate Dehydrogenase 83 L C-Reactive Protein 06/02/20 06/02/20 06/02/20 05:35 08:06 09:00 WBC RBC MCV MCH RDW Lymph % (Auto) Lymph # (Auto) Seg Neuts % (Manual) Lymphocytes % (Manual) Seg Neutrophils # Seg Neutrophils # Man Lymphocytes # (Manual) D-Dimer ABG pH 7.268 L ABG pO2 94.0 H ABG Base Excess -4.8 L Oxyhemoglobin 94.8 L Potassium Carbon Dioxide Glucose Lactic Acid 3.60 H* 2.10 H* Lactate Dehydrogenase C-Reactive Protein 06/02/20 06/02/20 06/02/20 10:23 11:50 14:25 WBC RBC MCV MCH RDW Lymph % (Auto) Lymph # (Auto) Seg Neuts % (Manual) Lymphocytes % (Manual) Seg Neutrophils # Seg Neutrophils # Man Lymphocytes # (Manual) D-Dimer 1283.30 H ABG pH 7.193 L* 7.331 L ABG pO2 122.5 H 137.6 H ABG Base Excess -6.6 L -4.5 L Oxyhemoglobin Potassium Carbon Dioxide Glucose Lactic Acid Lactate Dehydrogenase C-Reactive Protein 06/02/20 06/03/20 06/03/20 14:25 05:04 05:04 WBC 24.4 H RBC 3.57 L MCV 98 H MCH 33 H RDW 12.9 L Lymph % (Auto) Lymph # (Auto) Seg Neuts % (Manual) 98.0 H Lymphocytes % (Manual) 1.0 L Seg Neutrophils # Seg Neutrophils # Man 23.9 H Lymphocytes # (Manual) 0.2 L D-Dimer ABG pH ABG pO2 ABG Base Excess Oxyhemoglobin Potassium Carbon Dioxide Glucose 143 H 110 H Lactic Acid Lactate Dehydrogenase C-Reactive Protein 2.20 H Chest x-ray: report reviewed, image reviewed Additional Studies: CHEST 1 VIEW 06/03/20 INDICATION / CLINICAL INFORMATION: follow up respiratory failure. COMPARISON: 06/02/2020 FINDINGS: SUPPORT DEVICES: Interval removal of previously noted ET and NG tubes. HEART / MEDIASTINUM: Stable. LUNGS / PLEURA: Persistent mild patchy perihilar opacities bilaterally are not significant changed. No pleural effusion. No pneumothorax. ADDITIONAL FINDINGS: No significant additional findings. IMPRESSION: 1. Interval removal of ET tube and NG tube. 2. Mild patchy opacities are again noted in the perihilar region and unchanged from prior exam.
[2020-06-04] MEDS: IPRATROPIUM/ALBUTEROL SULFATE 3 ML AMPUL.NEB IH SCH ×5 (01:40→19:26)
[2020-06-04] MEDS: methylPREDNISolone Sod Succinate 125 MG/2 ML INJ IV SCH ×3 (06:19→18:38)
--- NOTE | 2020-06-04 08:57 | Progress Note ---
Assessment and Plan Assessment and plan: Acute asthma exacerbation We will continue patient on nebulizing treatments and IV steroid. We will keep O2 saturation greater or equal to 94%. Patient also placed on empiric IV antibiotics for possible underlying bronchitis. Will also consult pulmonology for evaluation. Acute hypoxic respiratory failure. Etiology secondary to above. Patient was in tubated but has extubated herself. Await pulmonary evaluation Suspected COVID-[address] consult to infectious disease for evaluation and recommendation. Meanwhile we await COVID-19 testing. Sepsis Present on admission. Etiology may be secondary to COVID-19 pneumonia. Patient meets criteria given the leukocytosis tachycardia and diagnosis of pneumonia. Follow-up Covid testing and monitor closely. DVT prophylaxis Patient placed on subcutaneous Lovenox. 06/03/2020. Continue bronchodilators/nebulizers/inhaled corticosteroids. Continue empiric IV antibiotics. Continue IV Solu-Medrol and taper per pulmona ry recommendations. Continue O2 and BiPAP as clinically indicated. Await Covid testing. Follow inflammatory markers. 06/04/2020. Continue bronchodilators/nebulizers/inhaled corticosteroids. Cont inue to trend inflammatory markers. D-dimer elevated at 1283, CRP 2.83 with LDH and ferritin normal. Await Covid testing. Check CTA of chest given elevated D- dimer. Patient satting 100% on room air History Interval history: Patient's respiratory status much improved and near baseline. Continue O2 and supportive care. Hospitalist Physical - Constitutional Vitals: Temp Pulse Resp BP Pulse Ox 98.1 F 77 18 112/62 91 06/04/20 06:00 06/04/20 06:00 06/04/20 06:00 06/04/20 06:00 06/04/20 06:00 General appearance: Present: no acute distress, well-nourished - EENT Eyes: Present: PERRL, EOM intact ENT: hearing intact, clear oral mucosa, dentition normal - Neck Neck: Present: supple, normal ROM - Respiratory Respiratory effort: normal Respiratory: bilateral: CTA - Cardiovascular Rhythm: regular Heart Sounds: Present: S1 & S2. Absent: gallop, rub - Extremities Extremities: no ischemia, No edema, Full ROM - Abdominal General gastrointestinal: soft, non-tender, non-distended, normal bowel sounds - Integumentary Integumentary: Present: clear, warm, dry - Neurologic Neurologic: CNII-XII intact, moves all extremities Results - Labs CBC & Chem 7: 06/03/20 05:04 06/03/20 05:04 Labs: Laboratory Last Values WBC 24.4 K/mm3 (4.5-11.0) H 06/03/20 05:04 RBC 3.57 M/mm3 (3.65-5.03) L 06/03/20 05:04 Hgb 11.7 gm/dl (10.1-14.3) 06/03/20 05:04 Hct 34.8 % (30.3-42.9) 06/03/20 05:04 MCV 98 fl (79-97) H 06/03/20 05:04 MCH 33 pg (28-32) H 06/03/20 05:04 MCHC 34 % (30-34) 06/03/20 05:04 RDW 12.9 % (13.2-15.2) L 06/03/20 05:04 Plt Count 302 K/mm3 (140-440) 06/03/20 05:04 Lymph % (Auto) 2.2 % (13.4-35.0) L 06/01/20 23:25 [place] % (Auto) 0.8 % (0.0-7.3) 06/01/20 23:25 Eos % (Auto) 0.0 % (0.0-4.3) 06/01/20 23:25 Baso % (Auto) 0.1 % (0.0-1.8) 06/01/20 23:25 Lymph # (Auto) 0.3 K/mm3 (1.2-5.4) L 06/01/20 23:25 [place] # (Auto) 0.1 K/mm3 (0.0-0.8) 06/01/20 23:25 Eos # (Auto) 0.0 K/mm3 (0.0-0.4) 06/01/20 23:25 Baso # (Auto) 0.0 K/mm3 (0.0-0.1) 06/01/20 23:25 Add Manual Diff Complete 06/03/20 05:04 Total Counted 100 06/03/20 05:04 Seg Neutrophils % [employer] 06/03/20 05:04 Seg Neuts % (Manual) 98.0 % (40.0-70.0) H 06/03/20 05:04 Band Neutrophils % 0 % 06/03/20 05:04 Lymphocytes % (Manual) 1.0 % (13.4-35.0) L 06/03/20 05:04 Reactive Lymphs % (Man) 0 % 06/03/20 05:04 Monocytes % (Manual) 1.0 % (0.0-7.3) 06/03/20 05:04 Eosinophils % (Manual) 0 % (0.0-4.3) 06/03/20 05:04 Basophils % (Manual) 0 % (0.0-1.8) 06/03/20 05:04 Metamyelocytes % 0 % 06/03/20 05:04 Myelocytes % 0 % 06/03/20 05:04 Promyelocytes % 0 % 06/03/20 05:04 Blast Cells % 0 % 06/03/20 05:04 Nucleated RBC % Not Reportable 06/03/20 05:04 Seg Neutrophils # 14.6 K/mm3 (1.8-7.7) H 06/01/20 23:25 Seg Neutrophils # Man 23.9 K/mm3 (1.8-7.7) H 06/03/20 05:04 Band Neutrophils # 0.0 K/mm3 06/03/20 05:04 Lymphocytes # (Manual) 0.2 K/mm3 (1.2-5.4) L 06/03/20 05:04 Abs React Lymphs (Man) 0.0 K/mm3 06/03/20 05:04 Monocytes # (Manual) 0.2 K/mm3 (0.0-0.8) 06/03/20 05:04 Eosinophils # (Manual) 0.0 K/mm3 (0.0-0.4) 06/03/20 05:04 Basophils # (Manual) 0.0 K/mm3 (0.0-0.1) 06/03/20 05:04 Metamyelocytes # 0.0 K/mm3 06/03/20 05:04 Myelocytes # 0.0 K/mm3 06/03/20 05:04 Promyelocytes # 0.0 K/mm3 06/03/20 05:04 Blast Cells # 0.0 K/mm3 06/03/20 05:04 WBC Morphology Not Reportable 06/03/20 05:04 Hypersegmented Neuts Not Reportable 06/03/20 05:04 Hyposegmented Neuts Not Reportable 06/03/20 05:04 Hypogranular Neuts Not Reportable 06/03/20 05:04 Smudge Cells Not Reportable 06/03/20 05:04 Toxic Granulation Not Reportable 06/03/20 05:04 Toxic Vacuolation Not Reportable 06/03/20 05:04 Dohle Bodies Not Reportable 06/03/20 05:04 Pelger-Huet Anomaly Not Reportable 06/03/20 05:04 Carla Rods Not Reportable 06/03/20 05:04 Platelet Estimate Consistent w auto 06/03/20 05:04 Clumped Platelets Not Reportable 06/03/20 05:04 Plt Clumps, EDTA Not Reportable 06/03/20 05:04 Large Platelets Not Reportable 06/03/20 05:04 Giant Platelets Not Reportable 06/03/20 05:04 Platelet Satelliting Not Reportable 06/03/20 05:04 Plt Morphology Comment Not Reportable 06/03/20 05:04 RBC Morphology Normal 06/03/20 05:04 Dimorphic RBCs Not Reportable 06/03/20 05:04 Polychromasia Not Reportable 06/03/20 05:04 Hypochromasia Not Reportable 06/03/20 05:04 Poikilocytosis Not Reportable 06/03/20 05:04 Anisocytosis Not Reportable 06/03/20 05:04 Microcytosis Not Reportable 06/03/20 05:04 Macrocytosis Not Reportable 06/03/20 05:04 Spherocytes Not Reportable 06/03/20 05:04 Pappenheimer Bodies Not Reportable 06/03/20 05:04 Sickle Cells Not Reportable 06/03/20 05:04 Target Cells Not Reportable 06/03/20 05:04 Tear Drop Cells Not Reportable 06/03/20 05:04 Ovalocytes Not Reportable 06/03/20 05:04 Helmet Cells Not Reportable 06/03/20 05:04 [place] Bodies Not Reportable 06/03/20 05:04 [place] Rings Not Reportable 06/03/20 05:04 Jamshid Cells Not Reportable 06/03/20 05:04 Bite Cells Not Reportable 06/03/20 05:04 Crenated Cell Not Reportable 06/03/20 05:04 Elliptocytes Not Reportable 06/03/20 05:04 Acanthocytes (Spur) Not Reportable 06/03/20 05:04 Rouleaux Not Reportable 06/03/20 05:04 Hemoglobin C Crystals Not Reportable 06/03/20 05:04 Schistocytes Not Reportable 06/03/20 05:04 Malaria parasites Not Reportable 06/03/20 05:04 [place] Bodies Not Reportable 06/03/20 05:04 Hem Pathologist Commnt No 06/03/20 05:04 PT 14.1 Sec. (12.2-14.9) 06/03/20 05:04 INR 1.11 (0.87-1.13) 06/03/20 05:04 D-Dimer 1283.30 ng/mlDDU (0-234) H 06/02/20 14:25 ABG pH 7.331 pH Units (7.350-7.450) L 06/02/20 11:50 ABG pCO2 40.8 mm Hg 06/02/20 11:50 ABG pO2 137.6 mm Hg (80.0-90.0) H 06/02/20 11:50 ABG HCO3 21.1 mmol/L (20.0-26.0) 06/02/20 11:50 ABG O2 Saturation 98.6 % (95.0-99.0) 06/02/20 11:50 ABG O2 Content 17.3 (0.0-44) 06/02/20 11:50 ABG Base Excess -4.5 mmol/L (-2.0-3.0) L 06/02/20 11:50 ABG Hemoglobin 12.5 gm/dl (12.0-16.0) 06/02/20 11:50 ABG Carboxyhemoglobin 1.1 % (0.0-5.0) 06/02/20 11:50 ABG Methemoglobin 0.7 % (0.0-1.5) 06/02/20 11:50 Oxyhemoglobin 96.8 % (95.0-99.0) 06/02/20 11:50 FiO2 50 % 06/02/20 11:50 Sodium 139 mmol/L (137-145) 06/03/20 05:04 Potassium 4.1 mmol/L (3.6-5.0) D 06/03/20 05:04 Chloride 106.0 mmol/L (98-107) 06/03/20 05:04 Carbon Dioxide 24 mmol/L (22-30) 06/03/20 05:04 Anion Gap 13 mmol/L 06/03/20 05:04 BUN 10 mg/dL (7-17) 06/03/20 05:04 Creatinine 0.7 mg/dL (0.6-1.2) 06/03/20 05:04 Estimated GFR > 60 ml/min 06/03/20 05:04 BUN/Creatinine Ratio 14 % 06/03/20 05:04 Glucose 110 mg/dL (65-100) H 06/03/20 05:04 Lactic Acid 1.10 mmol/L (0.7-2.0) 06/02/20 10:07 Calcium 9.1 mg/dL (8.4-10.2) 06/03/20 05:04 Ferritin 95.7 ng/mL (10.0-200.0) 06/02/20 14:25 Total Bilirubin 0.30 mg/dL (0.1-1.2) 06/01/20 23:25 AST 16 units/L (5-40) 06/01/20 23:25 ALT 14 units/L (7-56) 06/01/20 23:25 Alkaline Phosphatase 92 units/L (35-129) 06/01/20 23:25 Lactate Dehydrogenase 176 units/L (91-180) 06/02/20 14:25 C-Reactive Protein 2.20 mg/dL (0.00-1.30) H 06/02/20 14:25 Total Protein 7.9 g/dL (6.3-8.2) 06/01/20 23:25 Albumin 4.4 g/dL (3.9-5) 06/01/20 23:25 Albumin/Globulin Ratio 1.3 % 06/01/20 23:25 Procalcitonin 0.28 ng/mL (<0.15) 06/02/20 14:25 HCG, Qual Negative (Negative) 06/01/20 23:25 Microbiology: Microbiology 06/02/20 10:22 Tracheal Aspirate Sputum Culture - Preliminary Khoury/IV: Voiding Method Toilet IV Catheter Type [right Peripheral IV forearm] IV Catheter Type [Right Hand] Peripheral IV Active Medications - Current Medications Current Medications: Generic Name Dose Route Start Last Admin Trade Name Freq PRN Reason Stop Dose Admin Acetaminophen 650 mg 06/02/20 01:09 Tylenol PO Q4H PRN Pain MILD(1-3)/Fever >100.5/RUBIO Albuterol/Ipratropium 1 ampul 06/02/20 14:00 06/04/20 04:01 Duoneb *Not For Prn Use* IH 1 ampul Q6HRT HELIO Administration Arformoterol Tartrate 15 mcg 06/02/20 12:00 06/03/20 19:35 Brovana Nebu IH 15 mcg Q12HRT HELIO Administration Budesonide 0.5 mg 06/02/20 11:30 06/03/20 19:35 Pulmicort IH 0.5 mg Q12HRT HELIO Administration Enoxaparin Sodium 40 mg 06/02/20 22:00 06/03/20 21:34 Enoxaparin SUB-Q 40 mg QDAY@2200 HELIO Administration Protocol Hydrophilic Ointment 1 applic 06/02/20 09:28 Vaseline Lip Therapy TP Q2HR PRN Dry Lips Sodium Chloride 1,000 mls @ 75 mls/hr 06/02/20 01:15 06/03/20 23:42 Nacl 0.9% 1000 Ml IV 75 mls/hr DIRECT HELIO Administration Ceftriaxone Sodium 2 gm in 100 mls @ 200 mls/hr 06/02/20 22:00 06/03/20 21:35 Rocephin/Ns 2 Gm/100 Ml IV 200 mls/hr Q24H HELIO Administration Protocol Azithromycin 500 mg/ Sodium 250 mls @ 250 mls/hr 06/02/20 22:00 06/03/20 21:38 Chloride IV 06/05/20 22:59 250 mls/hr Q24H HELIO Administration Protocol Magnesium Hydroxide 30 ml 06/02/20 01:09 Milk Of Magnesia PO Q4H PRN Constipation Methylprednisolone Sodium Succinate 60 mg 06/02/20 13:00 06/04/20 06:19 Solu-Medrol IV 60 mg Q6HR HELIO Administration Montelukast Sodium 10 mg 06/02/20 18:00 06/03/20 17:53 Singulair PO 10 mg QPM HELIO Administration Morphine Sulfate 2 mg 06/02/20 01:09 Morphine IV Q4H PRN Pain, Moderate (4-6) Multi-Ingred Cream/Lotion/Oil/Oint 1 applic 06/02/20 09:28 Artificial Tears Ophth Oint OU Q4HR PRN Dry Eye(s) Ondansetron HCl 4 mg 06/02/20 01:09 Zofran IV Q8H PRN Nausea And Vomiting Sodium Chloride 10 ml 06/02/20 10:00 06/03/20 21:35 Sodium Chloride Flush Syringe 10 Ml IV 10 ml BID HELIO Administration Sodium Chloride 10 ml 06/02/20 01:09 Sodium Chloride Flush Syringe 10 Ml IV PRN PRN LINE FLUSH Nutrition/Malnutrition Assess - Dietary Evaluation Nutrition/Malnutrition Findings: Nutrition Notes Start: 06/02/20 10:43 Freq: Status: Active Protocol: Document 06/02/20 10:43 LP (Rec: 06/02/20 10:47 LP [id number]) Nutrition Notes Need for Assessment generated from: MD Order Initial or Follow up Assessment Current Diagnosis Respiratory Failure Other Pertinent Diagnosis Asthma, suspected COVID Current Diet Regular Labs/Tests Reviewed Pertinent Medications Solumedrol Propofol NS at 75ml/hr Height 5 ft 2 in Weight 83.915 kg [place] Body Weight (kg) 50.00 BMI 33.8 Weight Status Obese Subjective/Other Information Consult for evaluation of nutrition intakes. Pt on vent in ED. Burn Absent Trauma Absent GI Symptoms None Current % PO Negligible Minimum of two criteria No physical signs of malnutrition #1 Nutrition Diagnosis Inadequate oral intake Etiology ARF As Evidenced by Signs and Symptoms Pt on vent and unable to consume PO Is patient on ventilator? Yes Is Patient Ambulatory and/or Out of Bed No REE-([place] Jeor-confined to bed) 0144.531 Calculation [facility] for [facility]ations [facility] Additional Notes Protein needs are greater than 100g (greater than 2g/kg) Fluid needs are 1ml/kcal Nutrition Intervention Change Diet Order: TF consult or extubation Goal #1 TF consult or extubation Anticipated Discharge Needs: Regular diet Follow-Up By: 06/06/20 Additional Comments Follow for TF consult or extubation
[2020-06-04] MEDS: BUDESONIDE 0.5 MG/2 ML NEBU IH SCH ×2 (09:10→19:26)
[2020-06-04] MEDS: ARFORMOTEROL 15 MCG/2 ML NEBU IH SCH ×2 (09:10→19:26)
--- NOTE | 2020-06-04 10:02 | XRay Report ---
XR chest 1V ap INDICATION / CLINICAL INFORMATION: follow up respiratory failure. COMPARISON: 06/03/2020 FINDINGS: SUPPORT DEVICES: None. HEART /PULMONARY VASCULATURE: No significant abnormality. LUNGS / PLEURA: Mild diffuse increased interstitial markings are stable. No focal alveolar consolidat ion or pleural effusion. No pneumothorax. ADDITIONAL FINDINGS: No significant additional findings. IMPRESSION: Stable chest. Signer Name: Jared Abdi MD Signed: 06/04/2020 9:57 AM Workstation Name: [id number]
[2020-06-04] MEDS: ACETAMINOPHEN 325 MG TAB PO PRN ×2 (10:20→23:36)
--- NOTE | 2020-06-04 12:12 | Progress Note ---
Subjective Date of service: 06/04/20 Objective Vital Signs - 12hr 06/04/20 06/04/20 06/04/20 04:01 06:00 09:11 Temperature 98.1 F Pulse Rate 77 Pulse Rate [ 75 104 H Anterior Bilateral Throughout] Respiratory 18 Rate Respiratory 15 16 Rate [Anterior Bilateral Throughout] Blood Pressure 112/62 O2 Sat by Pulse 91 Oximetry 06/04/20 09:13 Temperature Pulse Rate Pulse Rate [ Anterior Bilateral Throughout] Respiratory Rate Respiratory Rate [Anterior Bilateral Throughout] Blood Pressure O2 Sat by Pulse 98 Oximetry Constitutional: no acute distress, alert Eyes: non-icteric ENT: oropharynx moist Neck: supple, no lymphadenopathy Ascultation: Bilateral: rhonchi Cardiovascular: regular rate and rhythm Gastrointestinal: normoactive bowel sounds, soft, non-tender Integumentary: normal Extremities: no cyanosis, no edema Neurologic: normal mental status, non-focal exam, pupils equal and round, CN II- XII normal Psychiatric: anxious CBC and BMP: 06/03/20 05:04 06/03/20 05:04 ABG, PT/INR, D-dimer: ABG ABG pH 7.331 pH Units (7.350-7.450) L 06/02/20 11:50 ABG pCO2 40.8 mm Hg 06/02/20 11:50 ABG pO2 137.6 mm Hg (80.0-90.0) H 06/02/20 11:50 ABG O2 Saturation 98.6 % (95.0-99.0) 06/02/20 11:50 PT/INR, D-dimer PT 14.1 Sec. (12.2-14.9) 06/03/20 05:04 INR 1.11 (0.87-1.13) 06/03/20 05:04 D-Dimer 1283.30 ng/mlDDU (0-234) H 06/02/20 14:25 Abnormal lab findings: Abnormal Labs 06/01/20 06/01/20 06/01/20 23:25 23:25 23:25 WBC 15.1 H RBC MCV 98 H MCH 33 H RDW 12.8 L Lymph % (Auto) 2.2 L Lymph # (Auto) 0.3 L Seg Neuts % (Manual) Lymphocytes % (Manual) Seg Neutrophils # 14.6 H Seg Neutrophils # Man Lymphocytes # (Manual) D-Dimer ABG pH ABG pO2 ABG Base Excess Oxyhemoglobin Potassium 3.4 L Carbon Dioxide 18 L Glucose 161 H Lactic Acid 5.30 H* Lactate Dehydrogenase C-Reactive Protein 06/02/20 06/02/20 06/02/20 01:46 01:46 01:46 WBC RBC MCV MCH RDW Lymph % (Auto) Lymph # (Auto) Seg Neuts % (Manual) Lymphocytes % (Manual) Seg Neutrophils # Seg Neutrophils # Man Lymphocytes # (Manual) D-Dimer 516.58 H ABG pH ABG pO2 ABG Base Excess Oxyhemoglobin Potassium Carbon Dioxide Glucose 181 H Lactic Acid 5.30 H* Lactate Dehydrogenase 83 L C-Reactive Protein 06/02/20 06/02/20 06/02/20 05:35 08:06 09:00 WBC RBC MCV MCH RDW Lymph % (Auto) Lymph # (Auto) Seg Neuts % (Manual) Lymphocytes % (Manual) Seg Neutrophils # Seg Neutrophils # Man Lymphocytes # (Manual) D-Dimer ABG pH 7.268 L ABG pO2 94.0 H ABG Base Excess -4.8 L Oxyhemoglobin 94.8 L Potassium Carbon Dioxide Glucose Lactic Acid 3.60 H* 2.10 H* Lactate Dehydrogenase C-Reactive Protein 06/02/20 06/02/20 06/02/20 10:23 11:50 14:25 WBC RBC MCV MCH RDW Lymph % (Auto) Lymph # (Auto) Seg Neuts % (Manual) Lymphocytes % (Manual) Seg Neutrophils # Seg Neutrophils # Man Lymphocytes # (Manual) D-Dimer 1283.30 H ABG pH 7.193 L* 7.331 L ABG pO2 122.5 H 137.6 H ABG Base Excess -6.6 L -4.5 L Oxyhemoglobin Potassium Carbon Dioxide Glucose Lactic Acid Lactate Dehydrogenase C-Reactive Protein 06/02/20 06/03/20 06/03/20 14:25 05:04 05:04 WBC 24.4 H RBC 3.57 L MCV 98 H MCH 33 H RDW 12.9 L Lymph % (Auto) Lymph # (Auto) Seg Neuts % (Manual) 98.0 H Lymphocytes % (Manual) 1.0 L Seg Neutrophils # Seg Neutrophils # Man 23.9 H Lymphocytes # (Manual) 0.2 L D-Dimer ABG pH ABG pO2 ABG Base Excess Oxyhemoglobin Potassium Carbon Dioxide Glucose 143 H 110 H Lactic Acid Lactate Dehydrogenase C-Reactive Protein 2.20 H
--- NOTE | 2020-06-04 18:13 | Cat Scan Report ---
CTA CHEST WITH CONTRAST INDICATION / CLINICAL INFORMATION: Elevated d-dimer. Pain TECHNIQUE: Axial CT images were obtained through the chest after injection of IV contrast. 3 plane MT P and/or 3D reconstructions were produced. All CT scans at this location are performed using CT dose reduction for ALARA by means of automated exposure control. COMPARISON: None available. FINDINGS: PULMONARY ARTERIES: No central or segmental pulmonary embolus. THORACIC AORTA: No significant abnormality. HEART: No significant abnormality. ADENOPATHY: No significant adenopathy. LUNGS/PLEURA: Patchy areas of groundglass attenuation involving bilateral upper lobes with additional scattered groundglass opacities of the right middle and right lower lobes. Trace pleural effusions. No pneumothorax. ADDITIONAL FINDINGS: None. UPPER ABDOMEN: No acute findings. SKELETAL STRUCTURES: No significant osseous abnormality. IMPRESSION: 1. Evidence of pulmonary embolus. 2. Trace bibasilar pleural effusions with patchy of ground glass opacities throughout the lungs, most pronounced within the upper lobes. Findings are most consistent with atypical infectious or inflamma tory process/viral pneumonitis. Signer Name: Jared Abdi MD Signed: 06/04/2020 6:08 PM Workstation Name: [id number]
[2020-06-04] MEDS: MONTELUKAST 10 MG TAB PO SCH (18:38)
--- NOTE | 2020-06-04 19:30 | Event Note ---
Date: 06/04/20 CT scan of the chest with contrast reveals questionable pulmonary embolism. We will treat patient with therapeutic Lovenox x1 dose. And follow-up with primary team in a.m. regarding further care and therapeutic anticoagulation.
[2020-06-04] MEDS ORDERED: ENOXAPARIN 100 MG/1 ML INJ SUB-Q ONE (21:00)
[2020-06-04] MEDS: cefTRIAXone/NS 2 GM/100 ML 2 GM/100 ML BAG IV SCH (21:49)
[2020-06-04] MEDS: ENOXAPARIN 40 MG/0.4 ML INJ SUB-Q SCH (22:00)
[2020-06-04] MEDS: AZITHROMYCIN 500 MG in SODIUM CHLORIDE 0.9% 250ML 250 ML IV SCH (23:38)
[2020-06-05] MEDS: IPRATROPIUM/ALBUTEROL SULFATE 3 ML AMPUL.NEB IH SCH ×4 (02:52→19:11)
[2020-06-05] MEDS: methylPREDNISolone Sod Succinate 125 MG/2 ML INJ IV SCH ×4 (06:42→18:10)
[2020-06-05] MEDS: SODIUM CHLORIDE 0.9% 1000 ML 1,000 ML IV SCH (06:55)
[2020-06-05] MEDS: ARFORMOTEROL 15 MCG/2 ML NEBU IH SCH ×2 (07:43→19:11)
[2020-06-05] MEDS: BUDESONIDE 0.5 MG/2 ML NEBU IH SCH ×2 (07:43→19:11)
--- NOTE | 2020-06-05 08:40 | XRay Report ---
CHEST 1 VIEW INDICATION / CLINICAL INFORMATION: follow up respiratory failure. COMPARISON: 06/04/2020 FINDINGS: SUPPORT DEVICES: None. HEART / MEDIASTINUM: Stable. LUNGS / PLEURA: Mild diffuse interstitial markings are unchanged. No focal infiltrates or pleural eff usion. No pneumothorax. ADDITIONAL FINDINGS: No significant additional findings. IMPRESSION: 1. No significant interval change since 06/04/2020. Signer Name: Dmitriy Feliciano MD Signed: 06/05/2020 8:36 AM Workstation Name: [id number]
--- NOTE | 2020-06-05 09:57 | Discharge Summary ---
Providers - Providers Date of Admission: 06/02/20 00:59 Date of discharge: 06/05/20 Attending physician: KORTNEY MEDINA 06/02/20 00:59 Consult to Physician [CONS] Routine Comment: Consulting Provider: HERB GRAY Physician Instructions: Reason For Exam: pui. 06/02/20 06:53 Consult to Physician [CONS] Routine Comment: Consulting Provider: HARISH CARPENTER Physician Instructions: Reason For Exam: Status Asthmaticus 06/02/20 09:28 Consult to Dietitian/Nutrition [CONS] Routine Physician Instructions: Reason For Exam: Reason for Consult: Evaluate nutritional intake Primary care physician: TOASTER ELEMENT REPAIRER Hospitalization Reason for admission: dyspnea Condition: Critical Hospital course: The patient is a 25-year-old female with known history of asthma came into the emergency room with complaints of shortness of breath. The patient was admitted with diagnosis of acute hypoxic respiratory failure, bilateral pneumonia and status asthmaticus/asthma exacerbation. Infectious diseases was consulted to evaluate for COVID-19. Her test was found to be negative. The patient was initially intubated in the ER due to respiratory distress. She subsequently self extubated. Patient's respiratory status improved with supplemental oxygen which was later weaned off and patient satting 94% on room air currently. The patient received treatment with IV Solu-Medrol, inhaled corticosteroids and IV antibiotics. The patient did have an elevated D-dimer for which CTA of the chest was obtained which revealed no evidence of pulmonary embolus. However, patient did have evidence of pneumonia as seen on chest x-ray on admission. Given the fact the patient is back to baseline respiratory status, patient will be discharged home and is to follow-up with ID and pulmonary as an outpatient. Disposition: - TO HOME OR SELFCARE Time spent for discharge: 35 Core Measure Documentation - Palliative Care Palliative Care/ Comfort Measures: Not Applicable - Core Measures Any of the following diagnoses?: none Exam - Constitutional Vitals: Temp Pulse Resp BP Pulse Ox 97.8 F 61 20 112/64 99 06/05/20 06:43 06/05/20 06:43 06/05/20 06:43 06/05/20 06:43 06/05/20 06:43 General appearance: Present: no acute distress, well-nourished - EENT Eyes: Present: PERRL ENT: hearing intact, clear oral mucosa - Neck Neck: Present: supple, normal ROM - Respiratory Respiratory effort: normal Respiratory: bilateral: CTA - Cardiovascular Heart Sounds: Present: S1 & S2. Absent: rub, click - Extremities Extremities: pulses symmetrical, No edema Peripheral Pulses: within normal limits - Abdominal General gastrointestinal: Present: soft, non-tender, non-distended, normal bowel sounds Female genitourinary: Present: normal - Integumentary Integumentary: Present: clear, warm, dry - Musculoskeletal Musculoskeletal: gait normal, strength equal bilaterally - Psychiatric Psychiatric: appropriate mood/affect, intact judgment & insight - Neurologic Neurologic: CNII-XII intact, moves all extremities Plan Activity: advance as tolerated Weight Bearing Status: Weight Bear as Tolerated Diet: regular Follow up with: PRIMARY CARE, [Primary Care Provider] - 3-5 Days HARISH CARPENTER MD [Staff Physician] - 7 Days POLLY STEARNS MD [Staff Physician] - 7 Days Prescriptions: predniSONE [Deltasone] 20 mg PO QDAY #24 tablet levoFLOXacin [Levaquin] 750 mg PO QDAY #10 tablet Albuterol Mdi (or & Nicu Only) [ProAir HFA Inhaler] 2 puff IH QID PRN #1 inhalation PRN Reason: Shortness Of Breath Montelukast [Singulair] 10 mg PO QPM #30 tablet Azithromycin [Zithromax Z-NALINI] 250 mg PO QDAY #6 tablet
[2020-06-05] MEDS: MONTELUKAST 10 MG TAB PO SCH (18:10)
[2020-06-05 18:42] VITALS: BP 122/77
== END 2020-06-05 18:43 | disposition home or self-care (01) | DRG 871 ==
LOC: ED 20:25 → 3A 06-02 00:59 → OBSVTOIN 06-02 00:59 → IMCU 06-02 07:37 → 3A 06-02 21:51
PROVIDERS: ADMIT Internal Medicine Geriatric Medicine; ATTEND Hospitalist
PROC: 0BH17EZ Insertion of Endotracheal Airway into Trachea, Via Natural or Artificial Opening (ICD-10-PCS; principal; 2020-06-02)
PROC: 5A1935Z Respiratory Ventilation, Less than 24 Consecutive Hours (ICD-10-PCS; 2020-06-02)
PROC: 4A033R1 Measurement of Arterial Saturation, Peripheral, Percutaneous Approach (ICD-10-PCS; 2020-06-02)
DX: A41.9 Sepsis, unspecified organism (principal); J96.01 Acute respiratory failure with hypoxia; J18.9 Pneumonia, unspecified organism; E87.2 Acidosis; J45.42 Moderate persistent asthma with status asthmaticus; Z20.828 Contact with and (suspected) exposure to other viral communicable diseases
CPT/HCPCS: 31500; 36415; 36600; 71045; 71275; 74018; 80048; 80053; 82140; 82728; 82803; 82947; 83615; 84145; 84703; 85007; 85025; 85379; 85610; 86140; 87070; 87205; 90471; 94002; 94003; 94640; 94644; 94660; 94760; 96365; 96375; 96376; G0378; J0456; J0696; J1170; J1650; J2060; J2704; J2920; J2930; J3475; J7030; J7050; Q9967; U0003